=== PATIENT | male | born 1945 | race African-American/Black ===

== ENCOUNTER 2017-06-25 00:42 | Inpatient (IN) ==
[2017-06-26 07:55] LABS: Basophils % 0.2 % (0.0-0.8); Eosinophils # 0.4 10*3/uL (0.0-0.87); Eosinophils % 7.1 % (0.00-10.9); Hematocrit 25.5 VOL% (42.0-52.0); Hemoglobin 8.2 GM/DL (14.0-18.0); Immature Granulocytes % 0.2 %; Immature Granulocytes Absolute 0.01 #; Lymphocytes # 1.7 10*3/uL (1.4-4.0); Lymphocytes % 29.7 % (21.2-54.2); Mean Corpuscular HGB Conc 32.2 GM/DL (32-36); Mean Corpuscular Hemoglobin 27 PG (27-34); Mean Corpuscular Volume 82.3 FL (87-102); Mean Platelet Volume 11.8 FL (9.6-12.0); Monocytes # 0.6 10*3/uL (0.11-0.8); Monocytes % 10.3 % (1.7-12.7); Neutrophils % 52.5 % (38.7-73.9); Platelet Count 262 T/CUMM (130-400); Red Cell Distribution Width 16.7 % (9.3-17.3); White Blood Count 5.8 T/CUMM (4-12)
--- NOTE | 2017-06-26 08:01 | EKG Report ---
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
[2017-06-26] MEDS ORDERED: MAGNESIUM SULF RIDER 4 GM in PREMIX 1 EACH IV PRN (08:27)
[2017-06-26] MEDS ORDERED: LACTULOSE 20 GM/30 ML UDCUP PO PRN (08:27)
[2017-06-26] MEDS ORDERED: ONDANSETRON 4 MG/2 ML VIAL IV PRN (08:27)
[2017-06-26] MEDS ORDERED: MAGNESIUM SULF RIDER 2 GM in PREMIX 1 EACH IV PRN (08:27)
[2017-06-26 08:54] LABS: Calcium 9.1 MG/DL (8.5-10.1); Osmolality,Calculated 281.3 MOS/KG (273-304); Potassium 4.5 MMOL/L (3.5-5.1)
[2017-06-26 09:13] LABS: Alanine Aminotransferase 14 U/L (16-61); Albumin 2.6 G/DL (3.4-5.0); Alkaline Phosphatase 81 U/L (45-117); Aspartate Amino Transferase 10 U/L (0-37); Bilirubin,Total < 0.39 MG/DL (0.2-1.0); Blood Urea Nitrogen 16 MG/DL (7-18); Calcium 8.9 MG/DL (8.5-10.1); Glucose 108 MG/DL (74-106); Potassium 4.5 MMOL/L (3.5-5.1); Sodium 143 MMOL/L (136-145); Total Protein 5.6 G/DL (6.4-8.3)
[2017-06-26] MEDS ORDERED: DEXTROSE 50% 25 GM/50 ML VIAL IV PRN (09:29)
[2017-06-26] MEDS ORDERED: GLUCAGON 1 MG VIAL IM PRN (09:29)
[2017-06-26] MEDS ORDERED: FERROUS SULFATE 325 MG TABLET PO SCH (09:30)
--- NOTE | 2017-06-26 09:30 | Cardiology History & Physical ---
<Herlinda Ann E - Last Filed: 06/26/17 09:45> Assessment and Plan - Time spent with patient Time spent with patient: Greater than 30 minutes (due to assessment, plan, and documentation) (1) Ventricular tachycardia Status: Acute Assessment and plan: See plan of care listed below. Current Visit: Yes (2) Syncope Status: Acute Assessment and plan: See plan of care listed below. Current Visit: Yes (3) Coronary artery disease Status: Chronic Assessment and plan: See plan of care listed below. Current Visit: Yes (4) Hypertension Status: Chronic Assessment and plan: See plan of care listed below. Current Visit: Yes (5) Diabetes mellitus Status: Chronic Assessment and plan: See plan of care listed below. Current Visit: Yes (6) Hyperlipidemia Status: Chronic Assessment and plan: See plan of care listed below. Current Visit: Yes History of Present Illness Chief complaint: syncope History of present illness: Producer Director: Dr. Dumont at [place] PCP: Dr. Guerrero at [place] Mr. Nathan is a 72 year old male with history of coronary artery disease, diabetes mellitus, hypertension, hyperlipidemia. He has a history of PTCA with proximal RCA stent. He also reports having a prior stroke approximately 1 month ago during a previous hospitalization at [place]. He was transferred to our facility yesterday evening from [facility] for further evaluation of syncope. Apparently, Mr. Nathan was admitted to the hospital on 06/18/17 after a syncopal episode. Mr. Nathan was at his home sitting in the chair and was having severe dizziness, lightheadedness, and nausea without vomiting. The next thing the patient remembers is his waking him up and him lying on the floor. He is unsure how long he was unconscious. He was subsequently admitted by Dr. Zane Guerrero for further evaluation. He was noted to have an episode of VT on June 21 or and underwent repeat left heart catheterization with Dr. Dumont. He was found to have moderate to severe obstructive CAD s/p PTCA and stent in the RCA and was subsequently referred to Dr. Craft for further EP evaluation and possible ICD placement due to high risk of sudden cardiac . Mr. Silvestre had been admitted to the hospital several times in the past couple months with symptoms of increasing fatigue, loss of appetite, nausea, and vomiting, dyspnea on exertion, and chest discomfort. Since he was in the hospital in April 2017 and underwent PCI, he denies recurrent angina or increased shortness of breath prior to his syncopal event. He denies any palpitations as well. At [facility], he was noted to have an H&H of 8.6 and 27.7 on 06/25/2017. Was also noted to have a platelet count 346, white blood cell count 6.58, sodium 140, potassium 5.1, chloride 107, carbon dioxide 26, calcium 9.4, creatinine 1.2, BUN 11, glucose 111, GFR 64. He does have a right femoral triple-lumen central line. At our facility, his H&H was noted to be 8.2 and 25.5. BNP is 230. CT head at [place] noted no evidence of acute intracranial pathology. ASSESSMENT/PLAN: 1. VENTRICULAR TACHYCARDIA - Patient has had no further documented dysrhythmias other than the episode at [place]. We will continue beta ignacio while we await EP evaluation. Will further discuss with Dr. Blue and Dr. Craft and await additional recommendations. 2. SYNCOPE - Possibly related to cardiac arrhythmia. Patient was transferred to our facility for further cardiac EP evaluation and possible ICD placement. 3. CORONARY ARTERY DISEASE - S/P PCI possibly 04/19/17?? He underwent left heart catheterization with Dr. Dumont on 06/24/17 which revealed approximately 70% stenosis in the ramus intermedius, 70% stenosis of the distal left circumflex complex, 50% stenosis in the mid segment of the mid LAD, 60% stenosis of the distal segment of the mid LAD, and about 60% stenosis of the mid segment of the right PDA, the stent in the proximal RCA was patent with good flow with mild to moderate disease inside the stent about 40% stenosis. He was noted to have an ejection fraction of 70%. 4. HYPERTENSION - Currently well controlled. Will reintroduce some of his home medications and continue to monitor and adjust accordingly. 5. DIABETES MELLITUS - He has been placed on accuchecks with sliding scale insulin. 6. HYPERLIPIDEMIA - Lipid panel on 06/24/2017 at [facility] revealed cholesterol 153, triglycerides 101, HDL 39, LDL 94. Continue lipid-lowering agent. Home Medications Medication Instructions Recorded Confirmed Type Ondansetron Tab [Zofran Tab] 4 mg PO Q6H #20 tablet 03/27/16 06/26/17 Rx Albuterol Sulfate [Proair HFA] 2 puff INH BID 06/26/17 06/26/17 History Aspirin 81 mg PO DAILY 06/26/17 06/26/17 History Brimonidine Tartrate [Brimonidine 1 drop BOTH EYES BID 06/26/17 06/26/17 History 0.2% Oph Soln] Budesonide/Formoterol 160-4.5 2 puff INH BID 06/26/17 06/26/17 History [Symbicort 160-4.5] Clopidogrel [Plavix] 75 mg PO TID 06/26/17 06/26/17 History Docusate Sodium Cap [Colace Cap] 100 mg PO BID 06/26/17 06/26/17 History Ferrous Sulfate [Ferrous Sulfate 325 mg PO DAILY 06/26/17 06/26/17 History Cap] Latanoprost 0.005% Oph Soln 0.005 % BOTH EYES DAILY 06/26/17 06/26/17 History [Xalatan 0.005% Oph Soln] Latanoprost [Latanoprost 0.005 % 0.005 drop BEDTIME 06/26/17 06/26/17 History Oph Soln] Losartan [Cozaar] 100 mg PO DAILY 06/26/17 06/26/17 History Metoprolol Tartrate 50 mg PO BID 06/26/17 06/26/17 History Polyethylene Glycol 3350 17 gm PO DAILY PRN 06/26/17 06/26/17 History Pregabalin [Lyrica] 75 mg PO BID 06/26/17 06/26/17 History Promethazine Tab [Phenergan Tab] 25 mg PO Q6HR 06/26/17 06/26/17 History Ranitidine Tab [Zantac Tab] 300 mg PO DAILY 06/26/17 06/26/17 History Rosuvastatin [Crestor] 10 mg PO DAILY 06/26/17 06/26/17 History Tramadol HCl [Tramadol Tab] 50 mg PO Q6HR PRN 06/26/17 06/26/17 History amLODIPine [Norvasc] 10 mg PO DAILY 06/26/17 06/26/17 History amLODIPine [Norvasc] 10 mg PO DAILY 06/26/17 06/26/17 History cloNIDine HCl [Clonidine HCl] 0.1 mg PO BID 06/26/17 06/26/17 History hydroCHLOROthiazide 25 mg PO DAILY 06/26/17 06/26/17 History [Hydrochlorothiazide] sitaGLIPtin [Januvia] 50 mg PO DAILY 06/26/17 06/26/17 History Allergies Allergy/AdvReac Type Severity Reaction Status Date / Time No Known Allergies Allergy Unverified 03/27/16 08:35 Review of systems: - Constitutional: Present: fatigue, As per HPI. Absent: anorexia, chills, daytime sleepiness, excessive sweating, fever(s), frequent falls, headache(s), increased appetite, lethargy, night sweats, stops breathing during sleep, weakness, weight gain, weight loss. - EENT Eyes: Present: As per HPI. Absent: blurry vision, diplopia, loss of vision Ears: Present: As per HPI. Absent: decreased hearing, ear discharge, ear pain Nose, mouth and throat: Present: As per HPI. Absent: dysphagia, epistaxis, headache(s), hoarseness, lip swelling, nasal congestion, neck mass, neck pain, sinus pressure, sore throat, throat swelling, tongue swelling, vertigo - Cardiovascular: Present: as per HPI. Absent: chest pain at rest, chest pain with activity, dyspnea, dyspnea on exertion, edema, claudication, diaphoresis, radiating jaw, neck or arm pain, lightheadedness, orthopnea, palpitations, PND - Respiratory: Present: as per HPI. Absent: dyspnea, dyspnea on exertion, cough , hemoptysis, wheezing, snoring, pain on inspiration - Gastrointestinal: Present: nausea, As per HPI. Absent: abdominal pain, bloating, change in bowel habits, constipation, heartburn, hematemesis, hematochezia, loose stools, melena, diarrhea, vomiting - Genitourinary: Present: As per HPI. Absent: difficulty urinating, dysuria, flank pain, hematuria, nocturia, urinary frequency, urinary incontinence - Musculoskeletal: Present: As per HPI. Absent: arthralgias, back pain, joint swelling, limited range of motion, muscle cramps, muscle weakness, myalgias - Neurological: Present: syncope, dizziness,As per HPI. Absent: weakness, abnormal gait, abnormal speech, behavioral changes, confusion, convulsions, disequilibrium, focal frequent falls, headache(s), memory loss, numbness, paresthesias, radicular pain, tremor(s) - Psychiatric: Present: As per HPI. Absent: anxiety, confusion, depression, panic attacks - Endocrine: Present: As per HPI. Absent: cold intolerance, heat intolerance, polydipsia, polyphagia - Hematologic/Lymphatic: Present: As per HPI. Absent: easy bleeding, easy bruising, lymphadenopathy Medical,Surgical,& Family Hx - Medical History Cardio: History of: CAD, Hypertension, Cardiovascular Problems HEENT: History of: Glaucoma Endocrine: History of: Diabetes Mellitus (NIDDM) Respiratory: History of: Asthma, COPD, Respiratory Problems Renal: History of: Renal Failure Gastrointestinal: History of: GERD - Surgical History Cardiac Surgeries: Sugical HX of: Cardiac Catheterization Patient Denies: Cardiac Surgery Thoracic Surgeries: Surgical HX of;: Kidney (Renal Surgery), Lobectomy (LEFT) Reproductive Surgeries: Surgical HX of;: Genitourinary Surgery - Social History Smoking Status: Current every day smoker Frequency of Alcohol Use: None Type of Drug Use: Marijuana Cardiology Physical Exam - Constitutional Vitals: Vital Signs Temp Pulse Resp BP Pulse Ox 97 F L 65 18 122/58 94 L 06/26/17 08:00 06/26/17 08:00 06/26/17 08:00 06/26/17 08:00 06/26/17 08:00 Intake and Output 06/25/17 06/26/17 06/26/17 22:59 06:59 14:59 Output Total 250 / 250 Balance -250 / -250 Output: Urine 250 / 250 Other: Voiding Method Urinal Weight 220 lb Exam: General appearance: Pleasant and cooperative. Overweight, no acute distress. Head exam: Present: normal inspection, normocephalic, atraumatic. Absent: hematoma, laceration Eye exam: Present: EOMI. Absent: conjunctival injection, nystagmus, periorbital swelling, scleral icterus, laceration to eyelids Pupils: Present: PERRL. Absent: constricted, dilated, fixed, irregular, unequal ENT exam: Present: normal exam, normal external ear exam Neck exam: Present: normal inspection. Absent: lymphadenopathy, meningismus, tenderness, thyromegaly, carotid bruit Respiratory exam: Present: clear to auscultation bilaterally. Absent: accessory muscle use, chest wall tenderness, rales, rhonchi, wheezing. Cardiovascular exam: Present: regular rate and rhythm. Absent: gallop, JVD, rubs, murmur GI/Abdominal exam: Present: normal bowel sounds, soft. Absent: distended, firm , guarding, hernia, mass, tenderness, rebound. Extremities exam: Present: normal inspection, normal capillary refill. Upper extremity pulses 2+. Lower extremity pulses 2+. Right femoral triple-lumen central line in place with dressing dry and intact. Absent: calf tenderness, edema Musculoskeletal: Present: No Fluid Collection, No Pain, Normal Range of Motion Back exam: Present: normal inspection. Absent: muscle spasm, vertebral tenderness Neurological exam: Present: alert, oriented X3, grossly intact without resting or essential tremor Psychiatric exam: Present: normal affect, normal mood Skin exam: Present: normal color, warm, dry, intact. Absent: cyanosis, diaphoretic, rash, urticaria Result/EKG - Labs CBC & BMP: 06/26/17 07:39 06/26/17 07:39 Lab Results: I have reviewed the past 24 hour labs Labs: Laboratory Results - last 24 hr 06/26/17 06/26/17 06/26/17 07:39 07:39 07:39 WBC 5.8 RBC 3.10 L Hgb 8.2 L Hct 25.5 L MCV 82.3 L MCH 27 MCHC 32.2 RDW 16.7 Plt Count 262 MPV 11.8 Neut % (Auto) 52.5 Lymph % (Auto) 29.7 [place] % (Auto) 10.3 Eos % (Auto) 7.1 Baso % (Auto) 0.2 Neut # (Auto) 3.0 Lymph # (Auto) 1.7 [place] # (Auto) 0.6 Eos # (Auto) 0.4 Baso # (Auto) 0.0 Immature Gran % 0.2 Nucleated RBC % 0.0 Immature Gran # 0.01 Nucleated RBCs # 0.00 Immature Plt Fraction 0.0 Sodium 141 Potassium 4.5 Chloride 109 H Carbon Dioxide 25 Anion Gap 11.5 BUN 16 Creatinine 1.20 GFR Calculation 90 BUN/Creatinine Ratio 13.00 Glucose 107 H POC Glucose Calculated Osmolality 281.3 Calcium 9.1 B-Natriuretic Peptide 230 H 06/26/17 08:14 WBC RBC Hgb Hct MCV MCH MCHC RDW Plt Count MPV Neut % (Auto) Lymph % (Auto) [place] % (Auto) Eos % (Auto) Baso % (Auto) Neut # (Auto) Lymph # (Auto) [place] # (Auto) Eos # (Auto) Baso # (Auto) Immature Gran % Nucleated RBC % Immature Gran # Nucleated RBCs # Immature Plt Fraction Sodium Potassium Chloride Carbon Dioxide Anion Gap BUN Creatinine GFR Calculation BUN/Creatinine Ratio Glucose POC Glucose 119 H Calculated Osmolality Calcium B-Natriuretic Peptide - EKG EKG results: interpreted by me, sinus rhythm <Etta Blue - Last Filed: 06/26/17 16:28> Assessment and Plan (1) Microcytic hypochromic anemia Status: Chronic Current Visit: Yes (2) Lumbar disc disease Status: Chronic Current Visit: Yes (3) Tobacco use Status: Chronic Current Visit: Yes (4) COPD (chronic obstructive pulmonary disease) Status: Chronic Current Visit: Yes (5) Ventricular tachycardia Status: Acute Current Visit: Yes (6) Syncope Status: Acute Current Visit: Yes (7) Coronary artery disease Status: Chronic Current Visit: Yes (8) Hypertension Status: Chronic Current Visit: Yes (9) Diabetes mellitus Status: Chronic Current Visit: Yes (10) Hyperlipidemia Status: Chronic Current Visit: Yes (11) CVA (cerebral vascular accident) Status: Acute Current Visit: Yes History of Present Illness History of present illness: Mr. Nathan is a 72 year old male with microcytic hypochromic anemia who had symptomatic VT associated with syncope. He is transferred here for further evaluation. He had left heart catheterization what appear to be an intraventricular cavity gradient at [place] when cath by Dr. Dumont. He had no critical epicardial stenosis he had mild in-stent restenosis or lumen loss as described above. Dr. Craft has reviewed the echo. I do not have those films. The patient states that he has been thoroughly worked up for his microcytic hyperchromic anemia including evaluation of his bowel but he continues to have complaints of bloating feeling in his stomach. He denies chest pain but has pain in his legs when he walks that he relates to his disc disease. He denies any recent weight loss. He continues to smoke. He is admitted to the cardiology service for EP consultation with Dr. Craft who and tends on implanting an ICD for secondary prophylaxis tomorrow morning at 930. I discussed with the patient and his . The only question was what time with this take place. They seem to be prepared for the procedure. Review of systems: I agree with the above and got a similar report from the patient. The patient did have syncope. Cardiology Physical Exam - Constitutional Vitals: Vital Signs Temp Pulse Resp BP Pulse Ox 98 F 70 18 147/67 93 L 06/26/17 12:00 06/26/17 12:00 06/26/17 12:00 06/26/17 12:00 06/26/17 12:00 Intake and Output 06/26/17 06/26/17 06/26/17 07:59 15:59 23:59 Intake Total 840 / 840 Output Total 250 / 250 800 / 800 Balance -250 / -250 40 / 40 Intake: Oral 840 / 840 Output: Urine 250 / 250 800 / 800 Other: Voiding Method Urinal Urinal # Bowel Movements 1 Weight 99.79 kg Patient Weight 06/26/17 23:59 Weight 99.79 kg Exam: I do not hear audible murmur. This gradient may have been transient. The patient has pallor. His PMI is within normal limits he does appear to have an S4 gallop. His lungs have coarse breath sounds but are nonfocal I do not hear rales. STD hose are in place. Result/EKG - Labs CBC & BMP: 06/26/17 11:05 06/26/17 07:39 Labs: Laboratory Results - last 24 hr 06/26/17 06/26/17 06/26/17 07:39 07:39 07:39 WBC 5.8 RBC 3.10 L Hgb 8.2 L Hct 25.5 L MCV 82.3 L MCH 27 MCHC 32.2 RDW 16.7 Plt Count 262 MPV 11.8 Neut % (Auto) 52.5 Lymph % (Auto) 29.7 [place] % (Auto) 10.3 Eos % (Auto) 7.1 Baso % (Auto) 0.2 Neut # (Auto) 3.0 Lymph # (Auto) 1.7 [place] # (Auto) 0.6 Eos # (Auto) 0.4 Baso # (Auto) 0.0 Immature Gran % 0.2 Nucleated RBC % 0.0 Immature Gran # 0.01 Nucleated RBCs # 0.00 Immature Plt Fraction 0.0 ESR Westergren Absolute Retic Percent Retic Retic Hgb Equivalent Sodium 141 Potassium 4.5 Chloride 109 H Carbon Dioxide 25 Anion Gap 11.5 BUN 16 Creatinine 1.20 GFR Calculation 90 BUN/Creatinine Ratio 13.00 Glucose 107 H POC Glucose Calculated Osmolality 281.3 Calcium 9.1 Iron TIBC % Saturation Ferritin Total Bilirubin AST ALT Alkaline Phosphatase B-Natriuretic Peptide 230 H Total Protein Albumin Globulin Albumin/Globulin Ratio Blood Type Antibody Screen KIMBERLEY (IgG-AHG) KIMBERLEY, Polyspecific 06/26/17 06/26/17 06/26/17 07:39 08:14 11:04 WBC RBC Hgb Hct MCV MCH MCHC RDW Plt Count MPV Neut % (Auto) Lymph % (Auto) [place] % (Auto) Eos % (Auto) Baso % (Auto) Neut # (Auto) Lymph # (Auto) [place] # (Auto) Eos # (Auto) Baso # (Auto) Immature Gran % Nucleated RBC % Immature Gran # Nucleated RBCs # Immature Plt Fraction ESR Westergren Absolute Retic Percent Retic Retic Hgb Equivalent Sodium 143 Potassium 4.5 Chloride 111 H Carbon Dioxide 25 Anion Gap 11.5 BUN 16 Creatinine 1.20 GFR Calculation 90 BUN/Creatinine Ratio 13.00 Glucose 108 H POC Glucose 119 H Calculated Osmolality 286.0 Calcium 8.9 Iron TIBC % Saturation Ferritin 25.2 L Total Bilirubin < 0.39 AST 10 ALT 14 L Alkaline Phosphatase 81 B-Natriuretic Peptide Total Protein 5.6 L Albumin 2.6 L Globulin 3.0 Albumin/Globulin Ratio 0.8 L Blood Type Antibody Screen KIMBERLEY (IgG-AHG) KIMBERLEY, Polyspecific 06/26/17 06/26/17 06/26/17 11:04 11:04 11:05 WBC 5.5 RBC 3.00 L Hgb 7.8 L Hct 24.7 L MCV 82.3 L MCH 26 L MCHC 31.6 L RDW 16.8 Plt Count 305 MPV 12.3 H Neut % (Auto) 54.1 Lymph % (Auto) 28.0 [place] % (Auto) 10.0 Eos % (Auto) 7.5 Baso % (Auto) 0.2 Neut # (Auto) 3.0 Lymph # (Auto) 1.5 [place] # (Auto) 0.6 Eos # (Auto) 0.4 Baso # (Auto) 0.0 Immature Gran % 0.2 Nucleated RBC % 0.0 Immature Gran # 0.01 Nucleated RBCs # 0.00 Immature Plt Fraction 0.0 ESR Westergren 96 H Absolute Retic 0.1 Percent Retic 2.6 H Retic Hgb Equivalent 26.2 L Sodium Potassium Chloride Carbon Dioxide Anion Gap BUN Creatinine GFR Calculation BUN/Creatinine Ratio Glucose POC Glucose Calculated Osmolality Calcium Iron TIBC % Saturation Ferritin Total Bilirubin AST ALT Alkaline Phosphatase B-Natriuretic Peptide Total Protein Albumin Globulin Albumin/Globulin Ratio Blood Type B POSITIVE Antibody Screen Negative KIMBERLEY (IgG-AHG) Negative KIMBERLEY, Polyspecific Negative 06/26/17 06/26/17 06/26/17 11:05 11:05 11:51 WBC RBC Hgb Hct MCV MCH MCHC RDW Plt Count MPV Neut % (Auto) Lymph % (Auto) [place] % (Auto) Eos % (Auto) Baso % (Auto) Neut # (Auto) Lymph # (Auto) [place] # (Auto) Eos # (Auto) Baso # (Auto) Immature Gran % Nucleated RBC % Immature Gran # Nucleated RBCs # Immature Plt Fraction ESR Westergren Absolute Retic 0.1 Percent Retic 2.4 H Retic Hgb Equivalent 25.5 L Sodium Potassium Chloride Carbon Dioxide Anion Gap BUN Creatinine GFR Calculation BUN/Creatinine Ratio Glucose POC Glucose 132 H Calculated Osmolality Calcium Iron 25 L TIBC 191 L % Saturation 13.1 L Ferritin 24.6 L Total Bilirubin AST ALT Alkaline Phosphatase B-Natriuretic Peptide Total Protein Albumin Globulin Albumin/Globulin Ratio Blood Type Antibody Screen KIMBERLEY (IgG-AHG) KIMBERLEY, Polyspecific
[2017-06-26] MEDS ORDERED: POLYETHYLENE GLYCOL POWDER 17 GM PACK PO PRN (10:06)
--- NOTE | 2017-06-26 10:48 | Electrophysiology Consultation ---
History of Present Illness - Data of Consult Patient: new to practice Consult date: 06/26/17 Requesting Physician: Etta Blue - Consult Narrative Reason for consult: VT History of present illness: Mr. Nathan is a 72 year old BM, followed by Dr. Dumont. He was transferred for EP evaluation, due to syncope, VT History of CAD, preserved ejection fraction, status post PCI's. He was recently admitted to [facility] after an episode of syncope, which was thought to be secondary due to heat exhaustion. LHC confirmed moderate, diffuse CAD, no options for further revascularization. The LV function was hyperdynamic. No documented LVOT gradient. Neurological consult found cerebrovascular small vessel disease, suspected seizure, for which Keppra was used. On the day of discharge, he had an episode of wide QRS, regular tachycardia, captured on the monitor. Initially, this was with one-to-one VA conduction, before the arrhythmia terminated, few seconds of 2-1 AV block was noted. This is consistent with ventricular tachycardia. No significant conversion pauses. His EKG sinus rhythm, normal OR interval, borderline IVCD, with nonspecific report changes, normal QTC. Type 2 diabetes mellitus, brittle, his vision is very poor. Hypertension, hyperlipidemia. He is still having some left upper extremity weakness from his recent CVA. He does not recall palpitations or history of atrial fibrillation. He is on aspirin and Plavix for his diffuse, severe CAD, PCI. He is anemic, hematocrit is 25, with microcytosis. He has occasional black stools, does not recall prior GI evaluation history of ulcers or polyps. His hematocrit was trending at 26-27 range at [facility] recently. He has history of syncope, for the past several years, which was also attributed to seizures. He has some tongue biting in the past. On recent episode, he was sitting, and passed out without prodromal symptoms, no injuries seizures incontinence or tongue biting. History of COPD, stable at this time. Glaucoma, with very poor vision. Mild CKD. History of chronic low back pain, status post implanted stimulator. CC: Gurjit Craft MD - Home Medications and Allergies Home Medications: Home Medications Medication Instructions Recorded Confirmed Type Ondansetron Tab [Zofran Tab] 4 mg PO Q6H #20 tablet 03/27/16 06/26/17 Rx Albuterol Sulfate [Proair HFA] 2 puff INH BID 06/26/17 06/26/17 History Aspirin 81 mg PO DAILY 06/26/17 06/26/17 History Brimonidine Tartrate [Brimonidine 1 drop BOTH EYES BID 06/26/17 06/26/17 History 0.2% Oph Soln] Budesonide/Formoterol 160-4.5 2 puff INH BID 06/26/17 06/26/17 History [Symbicort 160-4.5] Clopidogrel [Plavix] 75 mg PO TID 06/26/17 06/26/17 History Docusate Sodium Cap [Colace Cap] 100 mg PO BID 06/26/17 06/26/17 History Ferrous Sulfate [Ferrous Sulfate 325 mg PO DAILY 06/26/17 06/26/17 History Cap] Latanoprost 0.005% Oph Soln 0.005 % BOTH EYES DAILY 06/26/17 06/26/17 History [Xalatan 0.005% Oph Soln] Latanoprost [Latanoprost 0.005 % 0.005 drop BEDTIME 06/26/17 06/26/17 History Oph Soln] Losartan [Cozaar] 100 mg PO DAILY 06/26/17 06/26/17 History Metoprolol Tartrate 50 mg PO BID 06/26/17 06/26/17 History Polyethylene Glycol 3350 17 gm PO DAILY PRN 06/26/17 06/26/17 History Pregabalin [Lyrica] 75 mg PO BID 06/26/17 06/26/17 History Promethazine Tab [Phenergan Tab] 25 mg PO Q6HR 06/26/17 06/26/17 History Ranitidine Tab [Zantac Tab] 300 mg PO DAILY 06/26/17 06/26/17 History Rosuvastatin [Crestor] 10 mg PO DAILY 06/26/17 06/26/17 History Tramadol HCl [Tramadol Tab] 50 mg PO Q6HR PRN 06/26/17 06/26/17 History amLODIPine [Norvasc] 10 mg PO DAILY 06/26/17 06/26/17 History amLODIPine [Norvasc] 10 mg PO DAILY 06/26/17 06/26/17 History cloNIDine HCl [Clonidine HCl] 0.1 mg PO BID 08/23/17 08/23/17 History hydroCHLOROthiazide 25 mg PO DAILY 06/26/17 06/26/17 History [Hydrochlorothiazide] sitaGLIPtin [Januvia] 50 mg PO DAILY 06/26/17 06/26/17 History Allergies/Adverse Reactions: Allergies Allergy/AdvReac Type Severity Reaction Status Date / Time No Known Allergies Allergy Unverified 03/27/16 08:35 Medical,Surgical,& Family Hx - Medical History Cardio: History of: CAD, Hypertension, Cardiovascular Problems HEENT: History of: Glaucoma Endocrine: History of: Diabetes Mellitus (NIDDM) Respiratory: History of: Asthma, COPD, Respiratory Problems Renal: History of: Renal Failure Gastrointestinal: History of: GERD - Surgical History Cardiac Surgeries: Sugical HX of: Cardiac Catheterization Patient Denies: Cardiac Surgery Thoracic Surgeries: Surgical HX of;: Kidney (Renal Surgery), Lobectomy (LEFT) Reproductive Surgeries: Surgical HX of;: Genitourinary Surgery - Social History Smoking Status: Current every day smoker Frequency of Alcohol Use: None Type of Drug Use: Marijuana 12 point system: reviewed and no additional remarkable complaints except as stated Exam - Constitutional Vitals: Period Temp Pulse Resp BP Sys/Barajas Pulse Ox Last 24 Hr 97 F-97.0 F 65-68 17-18 122-145/58-70 89-94 General appearance: normal weight, over weight - Head Head exam: Present: normal inspection, normocephalic. Absent: contusion - Eye Eye exam: Absent: scleral icterus Pupils: Absent: dilated - ENT ENT exam: Present: normal external ear exam - Neck Neck exam: Present: normal inspection - Respiratory Respiratory exam: Present: decreased breath sounds. Absent: chest wall tenderness - Cardiovascular Cardiovascular exam: Present: regular rate and rhythm, systolic murmur. Absent : JVD - GI/Abdominal GI/Abdominal exam: Present: normal bowel sounds. Absent: distended - Extremities Exam Extremities exam: Present: normal inspection, normal capillary refill. Absent: edema - Neurological Exam Neurological exam: Present: alert, oriented X3 - Psychiatric Psychiatric exam: Present: normal affect, normal mood - Skin Skin exam: Present: normal color, warm. Absent: cyanosis Results - Labs CBC & BMP: 06/26/17 07:39 06/26/17 07:39 Lab Results: I have reviewed the past 24 hour labs Assessment and Plan (1) CVA (cerebral vascular accident) Status: Acute Assessment and plan: 72-year-old black male, recurrent syncope, CAD, preserved ejection fraction, ventricular tachycardia. Type 2 diabetes mellitus, glaucoma, back pain with implanted stimulator, suspected seizure disorder, recent CVA. -We discussed risks and benefits of management options. We will proceed with a dual-chamber ICD implant for secondary prevention of sudden cardiac , documented ventricular tachycardia, syncope, in context of structural heart disease. I am going with a dual-chamber device to monitor for silent A. fib, had prior CVA. No SPRAY PILOT indication. -He is currently on dual antiplatelet for his diffuse, severe CAD, recent PCI. -Anemia. Check occult stool blood, anemia studies. GI consult, has occasional black stools. -N.p.o. after midnight. We will plan to pursue the ICD implant under MAC tomorrow. Plan for a non-MRI compatible device, as his implanted back stimulator already contraindicates MRIs. Current Visit: Yes (2) Ventricular tachycardia Status: Acute Current Visit: Yes (3) Syncope Status: Acute Current Visit: Yes (4) Coronary artery disease Status: Chronic Current Visit: Yes (5) Hypertension Status: Chronic Current Visit: Yes (6) Diabetes mellitus Status: Chronic Current Visit: Yes (7) Hyperlipidemia Status: Chronic Current Visit: Yes
[2017-06-26] MEDS ORDERED: ceFAZolin 1,000 MG VIAL IRRIG ONE (10:54)
[2017-06-26] MEDS: amLODIPine 10 MG TABLET PO SCH (11:24)
[2017-06-26] MEDS: FAMOTIDINE 20 MG TABLET PO SCH (11:24)
[2017-06-26] MEDS: PANTOPRAZOLE 40 MG TABLET PO SCH (11:24)
[2017-06-26] MEDS: PROMETHAZINE 25 MG TABLET PO SCH ×2 (11:24→18:22)
[2017-06-26] MEDS: ACETAMINOPHEN 325 MG TABLET PO PRN (11:24)
[2017-06-26] MEDS: hydroCHLOROthiazide 25 MG TABLET PO SCH (11:24)
[2017-06-26] MEDS: CLOPIDOGREL 75 MG TABLET PO SCH (11:25)
[2017-06-26] MEDS: ALBUTEROL 2.5 MG/3 ML NEB RESP TX SCH ×2 (11:32→18:56)
[2017-06-26 11:46] LABS: Basophils % 0.2 % (0.0-0.8); Eosinophils # 0.4 10*3/uL (0.0-0.87); Eosinophils % 7.5 % (0.00-10.9); Hematocrit 24.7 VOL% (42.0-52.0); Hemoglobin 7.8 GM/DL (14.0-18.0); Immature Granulocytes % 0.2 %; Immature Granulocytes Absolute 0.01 #; Lymphocytes # 1.5 10*3/uL (1.4-4.0); Mean Corpuscular HGB Conc 31.6 GM/DL (32-36); Mean Corpuscular Hemoglobin 26 PG (27-34); Mean Corpuscular Volume 82.3 FL (87-102); Mean Platelet Volume 12.3 FL (9.6-12.0); Monocytes # 0.6 10*3/uL (0.11-0.8); Neutrophils % 54.1 % (38.7-73.9); Platelet Count 305 T/CUMM (130-400); Red Cell Distribution Width 16.8 % (9.3-17.3); White Blood Count 5.5 T/CUMM (4-12)
[2017-06-26 12:26] LABS: % Iron Saturation 13.1 % (18-50); Ferritin 24.6 ng/ml (26-388)
[2017-06-26] MEDS: INSULIN LISPRO 100 UNIT/ML SUBCUT SCH ×3 (12:36→21:17)
[2017-06-26 12:52] LABS: Sedimentation Rate-Westergren 96 MM/HR (0-20)
[2017-06-26] MEDS: traMADol 50 MG TABLET PO PRN ×2 (13:55→22:08)
--- NOTE | 2017-06-26 15:06 | XRay Report ---
XR chest 2V Indication: Preop ICD placement. Chest 2 views: Comparison 03/27/2016. Epidural stimulator again shown midthoracic spine. Heart size remains normal. Mediastinal contours unremarkable. Chronic scarring left lung base is stable. No infiltrates. Healed posterior left rib fractures stable. Impression: No acute cardiopulmonary disease. Chronic changes as described. PROCEDURE INTERPRETED AT [facility] DEPARTMENT OF RADIOLOGY Final Report Signed by: Zane Portillo M.D.
--- NOTE | 2017-06-26 16:57 | XRay Report ---
XR abdomen 2V Indication: Abdominal pain. Abdomen 3 views: Epidural stimulators are present, there is a right groin catheter, left iliac stent, and metallic density in left pelvis, possibly retained barium in a diverticulum. No small bowel dilatation shown. Normal amount of stool and gas is present in the colon. No free air. Impression: Unremarkable bowel gas pattern. PROCEDURE INTERPRETED AT [facility] DEPARTMENT OF RADIOLOGY Final Report Signed by: Zane Portillo M.D.
[2017-06-26 18:22] LABS: Hematocrit 25.7 VOL% (42.0-52.0); Hemoglobin 8.3 GM/DL (14.0-18.0)
[2017-06-26] MEDS: METOPROLOL TARTRATE 50 MG TABLET PO SCH (21:52)
[2017-06-26] MEDS: FERROUS SULFATE 325 MG TABLET PO SCH (21:52)
[2017-06-26] MEDS: cloNIDine 0.1 MG TABLET PO SCH (21:52)
[2017-06-26] MEDS: BRIMONIDINE 0.2% OPH SOLN 5 ML BOTTLE BOTH EYES SCH (21:52)
[2017-06-26] MEDS: ZALEPLON 5 MG CAPSULE PO PRN (22:08)
[2017-06-27] MEDS: ACETAMINOPHEN 325 MG TABLET PO PRN (01:01)
[2017-06-27 01:26] LABS: Basophils % 0.2 % (0.0-0.8); Eosinophils # 0.4 10*3/uL (0.0-0.87); Eosinophils % 6.3 % (0.00-10.9); Hematocrit 22.3 VOL% (42.0-52.0); Hemoglobin 7.2 GM/DL (14.0-18.0); Immature Granulocytes % 0.3 %; Immature Granulocytes Absolute 0.02 #; Lymphocytes # 1.5 10*3/uL (1.4-4.0); Lymphocytes % 25.6 % (21.2-54.2); Mean Corpuscular HGB Conc 32.3 GM/DL (32-36); Mean Corpuscular Hemoglobin 26 PG (27-34); Mean Corpuscular Volume 81.4 FL (87-102); Mean Platelet Volume 12.2 FL (9.6-12.0); Monocytes # 0.7 10*3/uL (0.11-0.8); Monocytes % 10.8 % (1.7-12.7); Neutrophils # 3.4 10*3/uL (1.4-7.4); Neutrophils % 56.8 % (38.7-73.9); Platelet Count 285 T/CUMM (130-400); Red Blood Count 2.74 MC/CUMM (3.8-5.5); Red Cell Distribution Width 16.7 % (9.3-17.3)
[2017-06-27 01:53] LABS: Calcium 8.9 MG/DL (8.5-10.1); Magnesium 1.6 MG/DL (1.8-2.4); Potassium 4.4 MMOL/L (3.5-5.1)
[2017-06-27] MEDS ORDERED: ceFAZolin 1,000 MG VIAL IRRIG ONE (06:00)
[2017-06-27] MEDS: ALBUTEROL 2.5 MG/3 ML NEB RESP TX SCH ×2 (06:50→18:55)
[2017-06-27] MEDS ORDERED: SODIUM CHLORIDE 0.9% 250 ML IV PRN (07:17)
[2017-06-27] MEDS: PROMETHAZINE 25 MG TABLET PO SCH ×4 (07:18→17:00)
--- NOTE | 2017-06-27 08:08 | EKG Report ---
Stationary ECG Study [facility] Test Date: 06/27/2017 8:06:55 AM Pat Name: SARAH PETERSON Department: Room: 291 Gender: M Admissions Manager: CAMERON : 1945 Requested by: Gurjit Craft Order Number: [id number] Reading MD: BARBARA CUEVAS Intervals [place] Rate: 63 P: 57 OK: 179 QRS: 12 QRSD: 86 T: 127 QT: 403 QTc: 410 Interpretive Statements SINUS RHYTHM MODERATE T-WAVE ABNORMALITY, CONSIDER LATERAL ISCHEMIA Electronically Signed On 06-28-17 07:02:53 CDT by BARBARA CUEVAS [email or web address]
--- NOTE | 2017-06-27 08:21 | Electrophysiology Progress Not ---
Assessment and Plan (1) CVA (cerebral vascular accident) Status: Acute Assessment and plan: 72-year-old black male, recurrent syncope, CAD, preserved ejection fraction, ventricular tachycardia. Type 2 diabetes mellitus, glaucoma, back pain with implanted stimulator, suspected seizure disorder, recent CVA. -Severe iron deficiency anemia, markedly elevated ESR. Suspicious for slow, ongoing loss. GI evaluation pending. He is already on PPI plus H2 ignacio. -He is currently on dual antiplatelet for his diffuse, severe CAD, recent PCI. -Continue iron, multivitamin. May need IV supplement, iron level markedly low -He is going to get transfusion today. -I am going to hold off ICD implant, until etiology of his severe anemia is established. He will need protection with a LifeVest in the meantime, if he gets discharged for outpatient workup, had VT/syncope -He is n.p.o. today for the planned defibrillator implant. I asked him not to eat, until GI comes by, if endoscopy can be pursued today Current Visit: Yes (2) Ventricular tachycardia Status: Acute Current Visit: Yes (3) Syncope Status: Acute Current Visit: Yes (4) Coronary artery disease Status: Chronic Current Visit: Yes (5) Hypertension Status: Chronic Current Visit: Yes (6) Diabetes mellitus Status: Chronic Current Visit: Yes (7) Hyperlipidemia Status: Chronic Current Visit: Yes Electrophysiology Subjective Interval history: Hematocrit trended down, 22. Frequent PVCs, no recurrence of sustained ventricular tachycardia. No chest pain. Exam - Constitutional Vitals: Period Temp Pulse Resp BP Sys/Barajas Pulse Ox Last 24 Hr 98 F-99.4 F 66-74 16-18 119-147/57-67 93-100 General appearance: normal weight, no acute distress - Head Head exam: Present: normal inspection, normocephalic - Eye Eye exam: Absent: conjunctival injection, scleral icterus Pupils: Absent: dilated - ENT ENT exam: Present: normal external ear exam - Neck Neck exam: Present: normal inspection - Respiratory Respiratory exam: Present: clear to auscultation bilaterally, prolonged expiratory phase - Cardiovascular Cardiovascular exam: Present: regular rate and rhythm, systolic murmur. Absent : JVD - GI/Abdominal GI/Abdominal exam: Present: normal bowel sounds. Absent: distended - Extremities Exam Extremities exam: Present: normal inspection, normal capillary refill. Absent: edema - Back Exam Back exam: Present: normal inspection - Neurological Exam Neurological exam: Present: alert, oriented X3 - Psychiatric Psychiatric exam: Present: normal affect, normal mood - Skin Skin exam: Present: normal color, warm. Absent: cyanosis Results - Labs CBC & BMP: 06/27/17 01:13 06/27/17 01:14 Lab Results: I have reviewed the past 24 hour labs
[2017-06-27] MEDS: INSULIN LISPRO 100 UNIT/ML SUBCUT SCH ×4 (08:32→21:50)
[2017-06-27 09:07] LABS: Hemoglobin A1 (Alkaline) 97.5 % (96.5-98.5); Hemoglobin A2 (Alkaline) 2.5 % (1.5-3.5)
--- NOTE | 2017-06-27 09:10 | Gastrointestinal Consult Note ---
<Syl Wilks - Last Filed: 06/27/17 09:08> Assessment and Plan (1) Anemia Status: Acute Assessment and plan: 06/27-Hx of anemia with blood transfusions in past with findings of HH 05/25 w/o overt bleeding. Reports of melena, on iron therapy as well as Plavix. Will obtain endoscopy records from [place]. Plan for diagnostic EGD today to further evaluate. Plan and addendum to follow by Dr Brown. Current Visit: Yes History of Present Illness Chief complaint: Anemia, melena History of present illness: Mr. Nathan is a 72 year old male who was admitted to the hospital on yesterday with syncopal episode. Pt is a fair historian as well as who is at bedside. Information was obtained from patient interview as well as chart review. Pt has a history of CAD, DM, HTN and hyperlipidemia. Pt was admitted initially to [place] on 06/18 for syncopal episodes and was transferred to our facility on yesterday for further evaluation by Dr Craft regarding this. He reportedly had onset of dizziness, nausea and vomiting at home prior to admission and was taken to the ER by family. He underwent heart catherization on 06/21 and was found to have severe obstructive CAD with patent RCA stent with no new stents placed (original placed several years ago). He was transferred to our facility for possible ICD placement after episode of VT at [place]. He was found to be anemic on admission. He states that he has a history of anemia in the past and has required blood transfusions on 2-3 occasions. He has had endoscopy done as well at [place] in the past year according to patients however they cannot recall the findings of this. Pt states he has not seen any overt bleeding however his states his stools are darker than usual in which he takes iron supplements daily however she notes a change. He states he has been losing weight but cannot recall how much. He denies any upper GI symptoms including nausea, vomiting, dyspepsia, belching, bloating or dysphagia. Denies taking any NSAIDs. He does take Plavix and aspirin therapy which is currently not on hold. His iron studies are noted with iron 25, TIBC 191, saturation 13.1, and ferritin 24.6. HH is 05/25 and he is to be transfused 2 units PRBC. Home Medications Medication Instructions Recorded Confirmed Type Ondansetron Tab [Lorna Tab] 4 mg PO Q6H #20 tablet 03/27/16 06/26/17 Rx Albuterol Sulfate [Proair HFA] 2 puff INH BID 06/26/17 06/26/17 History Aspirin 81 mg PO DAILY 06/26/17 06/26/17 History Brimonidine Tartrate [Brimonidine 1 drop BOTH EYES BID 06/26/17 06/26/17 History 0.2% Oph Soln] Budesonide/Formoterol 160-4.5 2 puff INH BID 06/26/17 06/26/17 History [Symbicort 160-4.5] Clopidogrel [Plavix] 75 mg PO TID 06/26/17 06/26/17 History Docusate Sodium Cap [Colace Cap] 100 mg PO BID 06/26/17 06/26/17 History Ferrous Sulfate [Ferrous Sulfate 325 mg PO DAILY 06/26/17 06/26/17 History Cap] Latanoprost 0.005% Oph Soln 0.005 % BOTH EYES DAILY 06/26/17 06/26/17 History [Xalatan 0.005% Oph Soln] Latanoprost [Latanoprost 0.005 % 0.005 drop BEDTIME 06/26/17 06/26/17 History Oph Soln] Losartan [Cozaar] 100 mg PO DAILY 06/26/17 06/26/17 History Metoprolol Tartrate 50 mg PO BID 06/26/17 06/26/17 History Polyethylene Glycol 3350 17 gm PO DAILY PRN 06/26/17 06/26/17 History Pregabalin [Lyrica] 75 mg PO BID 06/26/17 06/26/17 History Promethazine Tab [Phenergan Tab] 25 mg PO Q6HR 06/26/17 06/26/17 History Ranitidine Tab [Zantac Tab] 300 mg PO DAILY 06/26/17 06/26/17 History Rosuvastatin [Crestor] 10 mg PO DAILY 06/26/17 06/26/17 History Tramadol HCl [Tramadol Tab] 50 mg PO Q6HR PRN 06/26/17 06/26/17 History amLODIPine [Norvasc] 10 mg PO DAILY 06/26/17 06/26/17 History amLODIPine [Norvasc] 10 mg PO DAILY 06/26/17 06/26/17 History cloNIDine HCl [Clonidine HCl] 0.1 mg PO BID 06/26/17 06/26/17 History hydroCHLOROthiazide 25 mg PO DAILY 06/26/17 06/26/17 History [Hydrochlorothiazide] sitaGLIPtin [Januvia] 50 mg PO DAILY 06/26/17 06/26/17 History Allergies Allergy/AdvReac Type Severity Reaction Status Date / Time No Known Allergies Allergy Unverified 03/27/16 08:35 Medical,Surgical,& Family Hx - Medical History Cardio: History of: CAD, Hypertension, Cardiovascular Problems HEENT: History of: Glaucoma Endocrine: History of: Diabetes Mellitus (NIDDM) Respiratory: History of: Asthma, COPD, Respiratory Problems Renal: History of: Renal Failure Gastrointestinal: History of: GERD - Surgical History Cardiac Surgeries: Sugical HX of: Cardiac Catheterization Patient Denies: Cardiac Surgery Thoracic Surgeries: Surgical HX of;: Kidney (Renal Surgery), Lobectomy (LEFT) Reproductive Surgeries: Surgical HX of;: Genitourinary Surgery - Social History Smoking Status: Current every day smoker Frequency of Alcohol Use: None Type of Drug Use: Marijuana 12 point system: reviewed and no additional remarkable complaints except as stated - Constitutional Constitutional: Present: as per HPI, fatigue, weakness - EENT Eyes: Present: as per HPI Ears: Present: as per HPI Nose, mouth and throat: Present: as per HPI - Cardiovascular Cardiovascular: Present: as per HPI - Respiratory Respiratory: Present: as per HPI - Gastrointestinal Gastrointestinal: Present: as per HPI - Genitourinary Genitourinary: Present: as per HPI - Musculoskeletal Musculoskeletal: Present: as per HPI - Neurological Neurological: Present: as per HPI - Psychiatric Psychiatric: Present: as per HPI - Endocrine Endocrine: Present: as per HPI - Hematologic/Lymphatic Hematologic/Lymphatic: Present: as per HPI Exam - Constitutional Vitals: Period Temp Pulse Resp BP Sys/Barajas Pulse Ox Last 24 Hr 98 F-99.4 F 65-74 16-18 119-147/57-67 93-100 General appearance: normal weight, no acute distress - Head Head exam: Present: normal inspection, normocephalic - Eye Eye exam: Present: other (lids and conjunctiva unremarkable). Absent: scleral icterus - ENT ENT exam: Present: normal exam, normal oropharynx - Neck Neck exam: Present: normal inspection - Respiratory Respiratory exam: Present: clear to auscultation bilaterally. Absent: rales, rhonchi, wheezes - Cardiovascular Cardiovascular exam: Present: regular rate and rhythm. Absent: diastolic murmur , JVD, systolic murmur - GI/Abdominal GI/Abdominal exam: Present: normal bowel sounds, soft. Absent: ascites, distended, mass, organomegaly, tenderness - Extremities Exam Extremities exam: Present: normal inspection, full ROM - Back Exam Back exam: Present: normal inspection - Neurological Exam Neurological exam: Present: alert, oriented X3 - Psychiatric Psychiatric exam: Present: normal affect, normal mood - Skin Skin exam: Present: normal color, warm, dry Results - Labs CBC & BMP: 06/27/17 01:13 06/27/17 01:14 Lab Results: I have reviewed the past 24 hour labs <Willem Brown - Last Filed: 06/27/17 11:32> History of Present Illness History of present illness: Mr. Nathan is a 72 year old male Exam - Constitutional Vitals: Period Temp Pulse Resp BP Sys/Barajas Pulse Ox Last 24 Hr 96.4 F-99.4 F 59-74 14-18 119-147/57-71 93-100 Results - Labs CBC & BMP: 06/27/17 09:20 06/27/17 01:14
[2017-06-27 09:51] LABS: Hematocrit 22.9 VOL% (42.0-52.0); Hemoglobin 7.4 GM/DL (14.0-18.0)
[2017-06-27] MEDS: MULTIVITAMIN (BEROCCA) TABLET PO SCH ×2 (10:11→13:16)
[2017-06-27] MEDS: ROSUVASTATIN 10 MG TABLET PO SCH ×2 (10:11→13:17)
[2017-06-27] MEDS: ASPIRIN CHEW 81 MG TABLET PO SCH ×2 (10:11→13:20)
[2017-06-27] MEDS: cloNIDine 0.1 MG TABLET PO SCH ×3 (10:11→21:50)
[2017-06-27] MEDS: FERROUS SULFATE 325 MG TABLET PO SCH ×4 (10:12→21:50)
[2017-06-27] MEDS: MAGNESIUM OXIDE 400 MG TABLET PO SCH ×3 (10:12→21:49)
[2017-06-27] MEDS: hydroCHLOROthiazide 25 MG TABLET PO SCH ×2 (10:12→13:17)
[2017-06-27] MEDS: METOPROLOL TARTRATE 50 MG TABLET PO SCH ×3 (10:12→21:49)
[2017-06-27] MEDS: PANTOPRAZOLE 40 MG TABLET PO SCH ×2 (10:13→13:20)
[2017-06-27] MEDS: FAMOTIDINE 20 MG TABLET PO SCH ×2 (10:13→13:19)
[2017-06-27] MEDS: CLOPIDOGREL 75 MG TABLET PO SCH ×2 (10:13→13:20)
[2017-06-27] MEDS: amLODIPine 10 MG TABLET PO SCH ×2 (10:13→13:17)
--- NOTE | 2017-06-27 11:45 | Operative Note ---
Date of procedure: 06/27/17 Pre-op diagnosis: Severe anemia with melena on anticoagulation Procedure: EGD 72-year-old gentleman with severe anemia on anticoagulation with question melena now for EGD to further evaluate. Informed symptoms obtained the patient He was sedated with MAC anesthesia per anesthesia protocol. Patient placed in left lateral decubitus position the Olympus flexible video upper endoscope was inserted into the oral cavity under direct vision the esophagus was intubated. Findings: Esophagus-normal proximal mid esophageal mucosa distal esophagus with small hiatal hernia. No varices esophagitis Galvan's were identified. Stomach-normal insufflation normal mucosa to direct retroflexed views of the body, fundus, cardia and antrum station. No blood present. Pylorus-normal Duodenum-normal from the bulb of the duodenum to the third portion of the duodenum. Scattered AVMs were seen with no active bleeding. The procedure terminated placed our procedure well his discharge recovery in good condition. Postop diagnosis: 1. Angiodysplasia of the small bowel-likely source of ongoing GI bleed in face of anticoagulation. If active bleeding develops consider bleeding scan for attempted embolization. 2. Consider colonoscopy ,if not recently done at [place], once his Plavix has been held for 5 days per cardiology's approval. Anesthesia: MAC Surgeon / Physician: Willem Brown Estimated blood loss: none Specimens: none sent Condition: stable Disposition: post procedure unit Results - Labs CBC & BMP: 06/27/17 09:20 06/27/17 01:14 Discharge Plan - Discharge Medications No Action Ondansetron Tab [Zofran Tab] 4 mg PO Q6H #20 tablet Tramadol HCl [Tramadol Tab] 50 mg PO Q6HR PRN PRN Reason: Pain sitaGLIPtin [Januvia] 50 mg PO DAILY Ranitidine Tab [Zantac Tab] 300 mg PO DAILY Promethazine Tab [Phenergan Tab] 25 mg PO Q6HR Pregabalin [Lyrica] 75 mg PO BID Metoprolol Tartrate 50 mg PO BID Losartan [Cozaar] 100 mg PO DAILY Latanoprost [Latanoprost 0.005 % Oph Soln] 0.005 drop BEDTIME hydroCHLOROthiazide [Hydrochlorothiazide] 25 mg PO DAILY Ferrous Sulfate [Ferrous Sulfate Cap] 325 mg PO DAILY Docusate Sodium Cap [Colace Cap] 100 mg PO BID Clopidogrel [Plavix] 75 mg PO TID Budesonide/Formoterol 160-4.5 [Symbicort 160-4.5] 2 puff INH BID Brimonidine Tartrate [Brimonidine 0.2% Oph Soln] 1 drop BOTH EYES BID Aspirin 81 mg PO DAILY amLODIPine [Norvasc] 10 mg PO DAILY Latanoprost 0.005% Oph Soln [Xalatan 0.005% Oph Soln] 0.005 % BOTH EYES DAILY amLODIPine [Norvasc] 10 mg PO DAILY Rosuvastatin [Crestor] 10 mg PO DAILY Polyethylene Glycol 3350 17 gm PO DAILY PRN PRN Reason: Constipation cloNIDine HCl [Clonidine HCl] 0.1 mg PO BID Albuterol Sulfate [Proair HFA] 2 puff INH BID - Follow Up or Referral - Forms/Instructions
--- NOTE | 2017-06-27 11:51 | Anesthesia Post-Op ---
Anesthesia Post OP - Post Ansesthetic Evaluation Patient seen in post op: Yes Resp: within normal limits CV: within normal limits Mental: within normal limits Temp: within normal limits [id number]: within normal limits Nausea and Vomiting: within normal limits Pain: within normal limits
[2017-06-27] MEDS: BRIMONIDINE 0.2% OPH SOLN 5 ML BOTTLE BOTH EYES SCH ×2 (12:30→21:48)
[2017-06-27] MEDS: NICOTINE 14 MG/24 HR PATCH TRANSDERM SCH (13:15)
[2017-06-27] MEDS: traMADol 50 MG TABLET PO PRN ×2 (13:20→21:48)
--- NOTE | 2017-06-27 14:18 | Cardiology Progress Note ---
Assessment and Plan (1) Ventricular tachycardia Status: Acute Assessment and plan: See plan of care listed below. Current Visit: Yes (2) Syncope Status: Acute Assessment and plan: See plan of care listed below. Current Visit: Yes (3) Coronary artery disease Status: Chronic Assessment and plan: See plan of care listed below. Current Visit: Yes (4) Hypertension Status: Chronic Assessment and plan: See plan of care listed below. Current Visit: Yes (5) Diabetes mellitus Status: Chronic Assessment and plan: See plan of care listed below. Current Visit: Yes (6) Hyperlipidemia Status: Chronic Assessment and plan: See plan of care listed below. Current Visit: Yes Exam (Progress Note) - Constitutional Vitals: Period Temp Pulse Resp BP Sys/Barajas Pulse Ox Last 24 Hr 96.0 F-99.4 F 59-74 14-21 98-154/56-75 94-100 Result/EKG - Labs CBC & BMP: 06/27/17 09:20 06/27/17 01:14 Labs: Laboratory Results - last 24 hr 06/26/17 06/26/17 06/26/17 11:05 16:34 17:55 WBC RBC Hgb 8.3 L Hct 25.7 L MCV MCH MCHC RDW Plt Count MPV Neut % (Auto) Lymph % (Auto) [place] % (Auto) Eos % (Auto) Baso % (Auto) Neut # (Auto) Lymph # (Auto) [place] # (Auto) Eos # (Auto) Baso # (Auto) Immature Gran % Nucleated RBC % Immature Gran # Nucleated RBCs # Immature Plt Fraction Hemoglobin A1 97.5 Hemoglobin A2 2.5 Hgb ELP Interp See comment Sodium Potassium Chloride Carbon Dioxide Anion Gap BUN Creatinine GFR Calculation BUN/Creatinine Ratio Glucose POC Glucose 137 H Calculated Osmolality Calcium Magnesium Blood Type Antibody Screen Crossmatch Blood Bank Comment 06/26/17 06/27/17 06/27/17 20:33 01:13 01:14 WBC 6.0 RBC 2.74 L Hgb 7.2 L Hct 22.3 L MCV 81.4 L MCH 26 L MCHC 32.3 RDW 16.7 Plt Count 285 MPV 12.2 H Neut % (Auto) 56.8 Lymph % (Auto) 25.6 [place] % (Auto) 10.8 Eos % (Auto) 6.3 Baso % (Auto) 0.2 Neut # (Auto) 3.4 Lymph # (Auto) 1.5 [place] # (Auto) 0.7 Eos # (Auto) 0.4 Baso # (Auto) 0.0 Immature Gran % 0.3 Nucleated RBC % 0.0 Immature Gran # 0.02 Nucleated RBCs # 0.00 Immature Plt Fraction 0.0 Hemoglobin A1 Hemoglobin A2 Hgb ELP Interp Sodium 143 Potassium 4.4 Chloride 108 H Carbon Dioxide 26 Anion Gap 13.4 BUN 17 Creatinine 1.30 GFR Calculation 81 BUN/Creatinine Ratio 13.00 Glucose 120 H POC Glucose 119 H Calculated Osmolality 287.0 Calcium 8.9 Magnesium 1.6 L Blood Type Antibody Screen Crossmatch Blood Bank Comment 06/27/17 06/27/17 06/27/17 07:17 07:46 09:20 WBC RBC Hgb 7.4 L Hct 22.9 L MCV MCH MCHC RDW Plt Count MPV Neut % (Auto) Lymph % (Auto) [place] % (Auto) Eos % (Auto) Baso % (Auto) Neut # (Auto) Lymph # (Auto) [place] # (Auto) Eos # (Auto) Baso # (Auto) Immature Gran % Nucleated RBC % Immature Gran # Nucleated RBCs # Immature Plt Fraction Hemoglobin A1 Hemoglobin A2 Hgb ELP Interp Sodium Potassium Chloride Carbon Dioxide Anion Gap BUN Creatinine GFR Calculation BUN/Creatinine Ratio Glucose POC Glucose 119 H Calculated Osmolality Calcium Magnesium Blood Type Cancelled Antibody Screen Cancelled Crossmatch See Detail Blood Bank Comment Cancelled 06/27/17 Unknown WBC RBC Hgb Hct MCV MCH MCHC RDW Plt Count MPV Neut % (Auto) Lymph % (Auto) [place] % (Auto) Eos % (Auto) Baso % (Auto) Neut # (Auto) Lymph # (Auto) [place] # (Auto) Eos # (Auto) Baso # (Auto) Immature Gran % Nucleated RBC % Immature Gran # Nucleated RBCs # Immature Plt Fraction Hemoglobin A1 Hemoglobin A2 Hgb ELP Interp Sodium Potassium Chloride Carbon Dioxide Anion Gap BUN Creatinine GFR Calculation BUN/Creatinine Ratio Glucose POC Glucose Calculated Osmolality Calcium Magnesium Blood Type B POSITIVE Antibody Screen Crossmatch Blood Bank Comment
--- NOTE | 2017-06-27 14:33 | Cardiology Progress Note ---
Joel Gonzalez Vanessa RN, am scribing for, and in the presence of, Etta Blue DO 14 :33. Assessment and Plan - Time spent with patient Time spent with patient: Greater than 30 minutes (1) Ventricular tachycardia Status: Acute Assessment and plan: Documented episode of wide QRS regular tachycardia which initially demonstrated ventricular tachycardia without significant conversion pause. He has been evaluated by Dr. Craft. Status post endoscopy today for worsening anemia and pending improvement of hemoglobin, may be able to proceed with planned defibrillator implant tomorrow. May need to be discharged and reevaluated on outpatient basis with LifeVest at discharge. Current Visit: Yes (2) Syncope Status: Acute Assessment and plan: [place] to be most certainly related to dysrhythmia. Dr. Craft has evaluated and patient is candidate for AICD implant for preventative therapy. Current Visit: Yes (3) Microcytic hypochromic anemia Status: Chronic Assessment and plan: Requiring blood transfusion today. Will follow up post transfusion CBC and CBC in the morning. Current Visit: Yes (4) CVA (cerebral vascular accident) Status: Acute Assessment and plan: Appears stable at this time. Current Visit: Yes (5) COPD (chronic obstructive pulmonary disease) Status: Chronic Assessment and plan: Stable. Current Visit: Yes (6) Coronary artery disease Status: Chronic Assessment and plan: Mild to moderate coronary artery disease with no good options for revascularization. He does have recent history of RCA stent. Preserved EF 70% . Continue statin, ASA, Plavix, and beta-ignacio Current Visit: Yes (7) Diabetes mellitus Status: Chronic Assessment and plan: Continue current plan of care. Current Visit: Yes (8) Hyperlipidemia Status: Chronic Assessment and plan: Continue statin. Current Visit: Yes (9) Hypertension Status: Chronic Assessment and plan: Overall, well controlled. Continue to monitor and adjust antihypertensive regimen as indicated. Current Visit: Yes (10) Lumbar disc disease Status: Chronic Assessment and plan: Continue current plan of care. Current Visit: Yes (11) Tobacco use Status: Chronic Assessment and plan: 3-10 minutes spent with patient discussing the importance and merits of complete tobacco cessation. Reiterated importance of abstaining from use of marijuana also. Current Visit: Yes Cardiology - PN: Subj Interval history: CLASSIFIER TENDER: DR. DUMONT SUMMARY: Mr. Nathan, 72-year-old BM, with past medical history of coronary artery disease , diabetes, hypertension, and hyperlipidemia. He also has mild chronic renal insufficiency, COPD, glaucoma, and chronic low back pain (implanted stimulator) . He is status post PTCA and stent of proximal RCA. He has also had recent hospitalization at [facility] 1 month ago for stroke. He does have some residual left upper extremity weakness. Mr. Nathan was transferred from [facility] [place] on 06/18 for further evaluation of syncope and was subsequently found to have episodes of ventricular tachycardia. [address] [facility], he underwent repeat left heart catheterization by Dr. Dumont and was found to have moderate to severe obstructive CAD but no options for further revascularization. No documented LVOT gradient noted. He was transferred in referral to Dr. Craft for EP evaluation and AICD implant as he is at significantly high risk for sudden cardiac . June: Anemia present at admission was noted to be worsened today with H&H down to 7.2/ 22.3. AICD implant procedure canceled due to risk of V. fib initiation in the face of anemia transfusion was ordered and gastroenterology was consulted. Dr. Brown was able to evaluate patient early this morning and proceed with urgent diagnostic EGD. He has been on dual antiplatelet therapy. He had a cardiac stent many years ago but has a peripheral vascular intervention with presumed stent in the last 6 months in the left lower extremity by Dr. Dexter Barahona. Although dual antiplatelet therapy would be needed a much lesser time would be required. This probably can be stopped if needed. Of course longer therapy would be better but if problems arise it would probably be acceptable to stop his clopidogrel at this point if he has significant bleeding. 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 He could be considered for attempted embolization if active bleeding develops. He is evaluated this afternoon post EGD, and he is awake and alert in bed. Denies discomfort or shortness of breath. is present with him at bedside. BP 150/60. Sinus rhythm per telemetry monitoring with heart rate in 60s, no ectopy or sustained dysrhythmia. Hypomagnesemia, 1.6 this morning, and was repleted with IV mag sulfate per PRN protocol. Exam (Progress Note) - Constitutional Vitals: Period Temp Pulse Resp BP Sys/Barajas Pulse Ox Last 24 Hr 96.0 F-99.4 F 59-74 14-21 98-154/56-75 94-100 Exam: General appearance: No acute distress. Overweight. Head exam: Present: normal inspection, normocephalic, atraumatic. Absent: hematoma, laceration Eye exam: Present: EOMI. Absent: conjunctival injection, nystagmus, periorbital swelling, scleral icterus, laceration to eyelids Pupils: Present: PERRL. Absent: constricted, dilated, fixed, irregular, unequal ENT exam: Present: normal exam, normal external ear exam Neck exam: Present: normal inspection. Absent: lymphadenopathy, meningismus, tenderness, thyromegaly, carotid bruit Respiratory exam: Present: clear to auscultation bilaterally. Absent: accessory muscle use, chest wall tenderness, rales, rhonchi, wheezing. Cardiovascular exam: Present: regular rate and rhythm. Absent: gallop, JVD, rubs, murmur. No tachycardia, bradycardia, irregular rhythm GI/Abdominal exam: Present: normal bowel sounds, soft. Absent: distended, firm , guarding, hernia, mass, tenderness, rebound. Extremities exam: Present: normal inspection, normal capillary refill. Upper extremity pulses 2+. Lower extremity pulses 2+. Right femoral triple-lumen central line in place with dressing dry and intact. Absent: calf tenderness, edema Musculoskeletal: Present: No Fluid Collection, No Pain, Normal Range of Motion Back exam: Present: normal inspection. Absent: muscle spasm, vertebral tenderness Neurological exam: Present: alert, oriented X3, grossly intact without resting or essential tremor Psychiatric exam: Present: normal affect, normal mood. Patient does not appear anxious or depressed. Skin exam: Present: normal color, warm, dry, intact. Absent: cyanosis, diaphoretic, rash, urticaria The patient is receiving a blood transfusion when we examined. Result/EKG - Labs CBC & BMP: 06/27/17 09:20 06/27/17 01:14 Lab Results: I have reviewed the past 24 hour labs Labs: Laboratory Results - last 24 hr 06/26/17 06/26/17 06/26/17 11:05 16:34 17:55 WBC RBC Hgb 8.3 L Hct 25.7 L MCV MCH MCHC RDW Plt Count MPV Neut % (Auto) Lymph % (Auto) [place] % (Auto) Eos % (Auto) Baso % (Auto) Neut # (Auto) Lymph # (Auto) [place] # (Auto) Eos # (Auto) Baso # (Auto) Immature Gran % Nucleated RBC % Immature Gran # Nucleated RBCs # Immature Plt Fraction Hemoglobin A1 97.5 Hemoglobin A2 2.5 Hgb ELP Interp See comment Sodium Potassium Chloride Carbon Dioxide Anion Gap BUN Creatinine GFR Calculation BUN/Creatinine Ratio Glucose POC Glucose 137 H Calculated Osmolality Calcium Magnesium Blood Type Antibody Screen Crossmatch Blood Bank Comment 06/26/17 06/27/17 06/27/17 20:33 01:13 01:14 WBC 6.0 RBC 2.74 L Hgb 7.2 L Hct 22.3 L MCV 81.4 L MCH 26 L MCHC 32.3 RDW 16.7 Plt Count 285 MPV 12.2 H Neut % (Auto) 56.8 Lymph % (Auto) 25.6 [place] % (Auto) 10.8 Eos % (Auto) 6.3 Baso % (Auto) 0.2 Neut # (Auto) 3.4 Lymph # (Auto) 1.5 [place] # (Auto) 0.7 Eos # (Auto) 0.4 Baso # (Auto) 0.0 Immature Gran % 0.3 Nucleated RBC % 0.0 Immature Gran # 0.02 Nucleated RBCs # 0.00 Immature Plt Fraction 0.0 Hemoglobin A1 Hemoglobin A2 Hgb ELP Interp Sodium 143 Potassium 4.4 Chloride 108 H Carbon Dioxide 26 Anion Gap 13.4 BUN 17 Creatinine 1.30 GFR Calculation 81 BUN/Creatinine Ratio 13.00 Glucose 120 H POC Glucose 119 H Calculated Osmolality 287.0 Calcium 8.9 Magnesium 1.6 L Blood Type Antibody Screen Crossmatch Blood Bank Comment 06/27/17 06/27/17 06/27/17 07:17 07:46 09:20 WBC RBC Hgb 7.4 L Hct 22.9 L MCV MCH MCHC RDW Plt Count MPV Neut % (Auto) Lymph % (Auto) [place] % (Auto) Eos % (Auto) Baso % (Auto) Neut # (Auto) Lymph # (Auto) [place] # (Auto) Eos # (Auto) Baso # (Auto) Immature Gran % Nucleated RBC % Immature Gran # Nucleated RBCs # Immature Plt Fraction Hemoglobin A1 Hemoglobin A2 Hgb ELP Interp Sodium Potassium Chloride Carbon Dioxide Anion Gap BUN Creatinine GFR Calculation BUN/Creatinine Ratio Glucose POC Glucose 119 H Calculated Osmolality Calcium Magnesium Blood Type Cancelled Antibody Screen Cancelled Crossmatch See Detail Blood Bank Comment Cancelled 06/27/17 Unknown WBC RBC Hgb Hct MCV MCH MCHC RDW Plt Count MPV Neut % (Auto) Lymph % (Auto) [place] % (Auto) Eos % (Auto) Baso % (Auto) Neut # (Auto) Lymph # (Auto) [place] # (Auto) Eos # (Auto) Baso # (Auto) Immature Gran % Nucleated RBC % Immature Gran # Nucleated RBCs # Immature Plt Fraction Hemoglobin A1 Hemoglobin A2 Hgb ELP Interp Sodium Potassium Chloride Carbon Dioxide Anion Gap BUN Creatinine GFR Calculation BUN/Creatinine Ratio Glucose POC Glucose Calculated Osmolality Calcium Magnesium Blood Type B POSITIVE Antibody Screen Crossmatch Blood Bank Comment - EKG EKG results: interpreted by me, no acute changes EKG shows: sinus rhythm Su Gonzalez Shea, DO, personally performed the services described in this documentation, ascribed by Nia Maldonado RN in my presence, and it is both accurate and complete 433 .
[2017-06-27 20:35] LABS: Hematocrit 28.5 VOL% (42.0-52.0); Hemoglobin 9.3 GM/DL (14.0-18.0)
[2017-06-27] MEDS: ZALEPLON 5 MG CAPSULE PO PRN (21:49)
[2017-06-28 05:07] LABS: Basophils % 0.1 % (0.0-0.8); Eosinophils # 0.5 10*3/uL (0.0-0.87); Eosinophils % 6.7 % (0.00-10.9); Hematocrit 29.9 VOL% (42.0-52.0); Hemoglobin 9.9 GM/DL (14.0-18.0); Immature Granulocytes % 0.3 %; Immature Granulocytes Absolute 0.02 #; Lymphocytes # 1.8 10*3/uL (1.4-4.0); Lymphocytes % 25.7 % (21.2-54.2); Mean Corpuscular HGB Conc 33.1 GM/DL (32-36); Mean Corpuscular Hemoglobin 28 PG (27-34); Mean Corpuscular Volume 83.3 FL (87-102); Mean Platelet Volume 12.5 FL (9.6-12.0); Monocytes # 0.7 10*3/uL (0.11-0.8); Monocytes % 10.4 % (1.7-12.7); Neutrophils # 3.9 10*3/uL (1.4-7.4); Neutrophils % 56.8 % (38.7-73.9); Platelet Count 249 T/CUMM (130-400); Red Blood Count 3.59 MC/CUMM (3.8-5.5); Red Cell Distribution Width 16.3 % (9.3-17.3); White Blood Count 6.8 T/CUMM (4-12)
[2017-06-28 05:37] LABS: Calcium 9.2 MG/DL (8.5-10.1); Osmolality,Calculated 280.3 MOS/KG (273-304); Potassium 4.5 MMOL/L (3.5-5.1)
[2017-06-28] MEDS: ALBUTEROL 2.5 MG/3 ML NEB RESP TX SCH ×2 (07:26→20:32)
--- NOTE | 2017-06-28 07:50 | Electrophysiology Progress Not ---
Assessment and Plan (1) CVA (cerebral vascular accident) Status: Acute Assessment and plan: 72-year-old black male, recurrent syncope, CAD, preserved ejection fraction, ventricular tachycardia. Type 2 diabetes mellitus, glaucoma, back pain with implanted stimulator, suspected seizure disorder, recent CVA. -I recommend to complete GI workup, rule out malignancy as cause of severe anemia, markedly elevated ESR, before proceeding with ICD implant. -Please DC femoral TLC to decrease infectious risk, as soon as feasible -Continue metoprolol. No recent recurrence of the ventricular tachycardia, I would hold off adding an antiarrhythmic at this time. Amiodarone would be an option -If GI workup takes some time, he will need a LifeVest, before discharge. I can see him back in clinic in a week or so, to plan for the defibrillator implant, for secondary prevention. Current Visit: Yes (2) Ventricular tachycardia Status: Acute Current Visit: Yes (3) Syncope Status: Acute Current Visit: Yes (4) Coronary artery disease Status: Chronic Current Visit: Yes (5) Hypertension Status: Chronic Current Visit: Yes (6) Diabetes mellitus Status: Chronic Current Visit: Yes (7) Hyperlipidemia Status: Chronic Current Visit: Yes Electrophysiology Subjective Interval history: Hematocrit improved to 29 after transfusion. EGD confirmed AVMs in the duodenum , as suspected bleeding source. No ventricular tachycardia on telemetry. Exam - Constitutional Vitals: Period Temp Pulse Resp BP Sys/[place]ajas Pulse Ox Last 24 Hr 96.0 F-99.4 F 59-68 14-21 98-154/56-75 94-100 General appearance: normal weight, no acute distress - Head Head exam: Present: normal inspection. Absent: contusion - Eye Eye exam: Absent: conjunctival injection, scleral icterus Pupils: Absent: dilated - ENT ENT exam: Present: normal external ear exam - Neck Neck exam: Present: normal inspection - Respiratory Respiratory exam: Present: clear to auscultation bilaterally - Cardiovascular Cardiovascular exam: Present: regular rate and rhythm, systolic murmur. Absent : JVD - GI/Abdominal GI/Abdominal exam: Present: normal bowel sounds. Absent: distended - Extremities Exam Extremities exam: Present: normal inspection, normal capillary refill, other ( Right femoral TLC in place). Absent: edema - Back Exam Back exam: Present: normal inspection - Neurological Exam Neurological exam: Present: alert, oriented X3 - Psychiatric Psychiatric exam: Present: normal affect, normal mood - Skin Skin exam: Present: normal color, warm. Absent: cyanosis Results - Labs CBC & BMP: 06/28/17 03:46 06/28/17 03:46 Lab Results: I have reviewed the past 24 hour labs
[2017-06-28 08:04] LABS: Hematocrit 30.5 VOL% (42.0-52.0)
[2017-06-28] MEDS: BRIMONIDINE 0.2% OPH SOLN 5 ML BOTTLE BOTH EYES SCH ×2 (09:05→21:43)
[2017-06-28] MEDS: ROSUVASTATIN 10 MG TABLET PO SCH (09:05)
[2017-06-28] MEDS: FERROUS SULFATE 325 MG TABLET PO SCH ×3 (09:05→21:43)
[2017-06-28] MEDS: NICOTINE 14 MG/24 HR PATCH TRANSDERM SCH (09:05)
[2017-06-28] MEDS: cloNIDine 0.1 MG TABLET PO SCH ×2 (09:05→21:43)
[2017-06-28] MEDS: PROMETHAZINE 25 MG TABLET PO SCH ×4 (09:06→18:02)
[2017-06-28] MEDS: ASPIRIN CHEW 81 MG TABLET PO SCH (09:06)
[2017-06-28] MEDS: hydroCHLOROthiazide 25 MG TABLET PO SCH (09:06)
[2017-06-28] MEDS: MULTIVITAMIN (BEROCCA) TABLET PO SCH (09:06)
[2017-06-28] MEDS: PANTOPRAZOLE 40 MG TABLET PO SCH (09:06)
[2017-06-28] MEDS: amLODIPine 10 MG TABLET PO SCH (09:06)
[2017-06-28] MEDS: MAGNESIUM OXIDE 400 MG TABLET PO SCH ×2 (09:07→21:43)
[2017-06-28] MEDS: FAMOTIDINE 20 MG TABLET PO SCH (09:07)
[2017-06-28] MEDS: METOPROLOL TARTRATE 50 MG TABLET PO SCH ×2 (09:07→22:17)
[2017-06-28] MEDS: INSULIN LISPRO 100 UNIT/ML SUBCUT SCH ×4 (09:14→22:16)
[2017-06-28] MEDS: CLOPIDOGREL 75 MG TABLET PO SCH (09:15)
[2017-06-28 09:45] LABS: Vitamin B12 530 PG/ML (211-911)
--- NOTE | 2017-06-28 09:45 | Gastrointestinal Progress Note ---
<Syl Wilks - Last Filed: 06/28/17 09:43> Assessment and Plan (1) Anemia Status: Acute Assessment and plan: 06/28-H&H holding at 09/02. No overt bleeding reported. Prior colonoscopy at [facility] noted as below. Continue to monitor this time. Plan an addendum to follow Dr. Brown. 06/27-Hx of anemia with blood transfusions in past with findings of HH 05/25 w/o overt bleeding. Reports of melena, on iron therapy as well as Plavix. Will obtain endoscopy records from [facility]. Plan for diagnostic EGD today to further evaluate. Plan and addendum to follow by Dr Brown. Current Visit: Yes Gastroenterology - PN: Subj Interval history: CC: Anemia Patient is seen, awake and alert lying in bed. States he had an uneventful night. Denies any abdominal pain, nausea or vomiting. EGD on yesterday noted showed AVMs of the small bowel. He is not having any known overt bleeding at this time. Reviewed records from [facility], and noted the patient did have a colonoscopy done in September of last year with suboptimal prep noted, with pre- diverticular findings as well as polyps 2 removed with negative pathology. Patient H&H: 09/02 and has been transfused 2 units packed red blood cells since admission. He is noted to be held n.p.o. however according to records noted today there are no plans at this time to proceed with ICD placement in his GI workup has been completed. Abdomen is soft, nontender. ROS: Denies shortness breath or chest pain Exam (Progress Note) - Constitutional Vitals: Period Temp Pulse Resp BP Sys/[place]ajas Pulse Ox Last 24 Hr 96.0 F-99.5 F 59-68 14-21 98-154/56-75 94-100 General appearance: normal weight, no acute distress - Head Head exam: Present: normal inspection, normocephalic - Eye Eye exam: Present: other (Lids and conjunctivae are unremarkable). Absent: scleral icterus - ENT ENT exam: Present: normal exam, normal oropharynx - Neck Neck exam: Present: normal inspection - Respiratory Respiratory exam: Present: clear to auscultation bilaterally. Absent: rales, rhonchi, wheezes - Cardiovascular Cardiovascular exam: Present: regular rate and rhythm. Absent: diastolic murmur , JVD, systolic murmur - GI/Abdominal GI/Abdominal exam: Present: normal bowel sounds, soft. Absent: ascites, distended, mass, organomegaly, tenderness - Extremities Exam Extremities exam: Present: normal inspection, full ROM - Back Exam Back exam: Present: normal inspection - Neurological Exam Neurological exam: Present: alert, oriented X3 - Psychiatric Psychiatric exam: Present: normal affect, normal mood - Skin Skin exam: Present: normal color, warm, dry Results - Labs CBC & BMP: 06/28/17 07:47 06/28/17 03:46 Lab Results: I have reviewed the past 24 hour labs Specialty Discharge - Follow Up or Referrals Follow up with: Gurjit Craft MD [Physician] - 1 Week (ECG, CBC, Chem 7) <Willem Brown - Last Filed: 06/28/17 14:40> Exam (Progress Note) - Constitutional Vitals: Period Temp Pulse Resp BP Sys/Barajas Pulse Ox Last 24 Hr 97.0 F-99.5 F 58-68 16-20 124-146/60-71 95-100 Results - Labs CBC & BMP: 06/28/17 07:47 06/28/17 03:46
[2017-06-28 09:46] LABS: Folate 4.5 NG/ML (5.4-24.0)
--- NOTE | 2017-06-28 12:33 | Discharge Summary ---
Hospital Course - Hospital Course Hospital Course: Mr. Nathan is a 72-year-old gentleman who was taken transferred from [facility] [place] for the purpose of receiving an ICD for secondary prophylaxis after nonsustained ventricular tachycardia at outside facility. After arrival here he was found to be significantly anemic and had a dropping hemoglobin and hematocrit. He also was found to have a markedly elevated erythrocyte sedimentation rate in the experienced weight loss.. The patient underwent EGD at our facility that showed angiodysplasia but no other significant abnormality. This was in the small bowel. We obtained 31 pages of records from [facility] [place] I read those there is most recently and most importantly been an EGD performed that facility which showed a duodenal ulcer and biopsy report was reviewed. Patient also had a colonoscopy performed by Dr. Sha Villanueva that showed some transverse colon polyps that were benign a rectal skin tag and hemorrhoid remnant. There is no mass. Because of the patient's overall clinical status it was felt best by Dr. Craft that the patient had some workup prior to proceeding with ICD. There were concerns of malignancy given weight loss erythrocyte sedimentation rate and anemia. The patient had a LifeVest placed and will follow with Dr. Craft in 1 week with Chem- 7, CBC and ECG. - Time spent with patient Time with patient DS: Greater than 30 minutes Diagnosis - Discharge Diagnosis (1) Ventricular tachycardia Status: Acute (2) Syncope Status: Acute (3) Microcytic hypochromic anemia Status: Chronic (4) CVA (cerebral vascular accident) Status: Acute (5) COPD (chronic obstructive pulmonary disease) Status: Chronic (6) Coronary artery disease Status: Chronic (7) Diabetes mellitus Status: Chronic (8) Hyperlipidemia Status: Chronic (9) Hypertension Status: Chronic (10) Lumbar disc disease Status: Chronic (11) Tobacco use Status: Chronic (12) Polyposis coli Status: Chronic (13) Duodenal ulcer Status: Chronic Specialty Discharge - Follow Up or Referrals Follow up with: Gurjit Craft MD [Physician] - 1 Week (ECG, CBC, Chem 7) Discharge Plan - Discharge Data Disposition: Disch To Home/Self Care Condition at Discharge: Stable Discharge Diet: advance to your usual diet Activity: resume usual activities as tolerated Hygiene: no restrictions Weight Bearing at Discharge: full weight bearing Driving: not until seen by doctor Contact your physician if you experience:: fever over 101, Difficulty voiding, Redness or swelling, Nausea/Vomiting, Shortness of breath, Bleeding, pain uncontrolled by pain medications - Discharge Medications Continue Ondansetron Tab [Zofran Tab] 4 mg PO Q6H #20 tablet Tramadol HCl [Tramadol Tab] 50 mg PO Q6HR PRN PRN Reason: Pain sitaGLIPtin [Januvia] 50 mg PO DAILY Ranitidine Tab [Zantac Tab] 300 mg PO DAILY Promethazine Tab [Phenergan Tab] 25 mg PO Q6HR Pregabalin [Lyrica] 75 mg PO BID Metoprolol Tartrate 50 mg PO BID Losartan [Cozaar] 100 mg PO DAILY Latanoprost [Latanoprost 0.005 % Oph Soln] 0.005 drop BEDTIME hydroCHLOROthiazide [Hydrochlorothiazide] 25 mg PO DAILY Ferrous Sulfate [Ferrous Sulfate Cap] 325 mg PO DAILY Docusate Sodium Cap [Colace Cap] 100 mg PO BID Clopidogrel [Plavix] 75 mg PO TID Budesonide/Formoterol 160-4.5 [Symbicort 160-4.5] 2 puff INH BID Brimonidine Tartrate [Brimonidine 0.2% Oph Soln] 1 drop BOTH EYES BID Aspirin 81 mg PO DAILY amLODIPine [Norvasc] 10 mg PO DAILY Latanoprost 0.005% Oph Soln [Xalatan 0.005% Oph Soln] 0.005 % BOTH EYES DAILY Rosuvastatin [Crestor] 10 mg PO DAILY Polyethylene Glycol 3350 17 gm PO DAILY PRN PRN Reason: Constipation cloNIDine HCl [Clonidine HCl] 0.1 mg PO BID Albuterol Sulfate [Proair HFA] 2 puff INH BID Discontinued amLODIPine [Norvasc] 10 mg PO DAILY - Follow Up or Referral Follow Up: Gurjit Craft MD [Physician] - 1 Week (ECG, CBC, Chem 7) - Forms/Instructions Exam - Constitutional Vitals: Period Temp Pulse Resp BP Sys/[place] Pulse Ox Last 24 Hr 97.0 F-99.5 F 60-68 16-20 124-154/60-71 95-100 General appearance: normal weight - Head Head exam: Present: normal inspection - Eye Eye exam: Present: EOMI Pupils: Present: HAILE - ENT ENT exam: Present: normal exam - Neck Neck exam: Present: normal inspection - Respiratory Respiratory exam: Present: clear to auscultation bilaterally - Cardiovascular Cardiovascular exam: Present: regular rate and rhythm - GI/Abdominal GI/Abdominal exam: Present: normal bowel sounds, soft - Extremities Exam Extremities exam: Present: normal inspection, full ROM - Back Exam Back exam: Present: normal inspection - Neurological Exam Neurological exam: Present: alert, oriented X3 - Psychiatric Psychiatric exam: Present: normal affect, normal mood - Skin Skin exam: Present: normal color, warm Discharge Results Procedures and tests throughout hospitalization: Pending Orders 06/26/17 10:13 Occult Blood, Stool Routine 06/28/17 16:41 H&H [Hemoglobin and Hematocrit] Q8H Labs on day of discharge: Labs from last 24 hours 06/28/17 06/28/17 06/28/17 12:04 08:14 07:47 WBC RBC Hgb 10.0 L Hct 30.5 L MCV MCH MCHC RDW Plt Count MPV Neut % (Auto) Lymph % (Auto) [place] % (Auto) Eos % (Auto) Baso % (Auto) Neut # (Auto) Lymph # (Auto) [place] # (Auto) Eos # (Auto) Baso # (Auto) Immature Gran % Nucleated RBC % Immature Gran # Nucleated RBCs # Anemia Panel Interp Immature Plt Fraction Sodium Potassium Chloride Carbon Dioxide Anion Gap BUN Creatinine GFR Calculation BUN/Creatinine Ratio Glucose POC Glucose 108 H 106 Calculated Osmolality Calcium Magnesium Transferrin Vitamin B12 Folate Blood Type Antibody Screen Crossmatch Blood Bank Comment 06/28/17 06/28/17 06/27/17 03:46 03:46 20:30 WBC 6.8 RBC 3.59 L D Hgb 9.9 L 9.3 L D Hct 29.9 L 28.5 L MCV 83.3 L MCH 28 MCHC 33.1 RDW 16.3 Plt Count 249 MPV 12.5 H Neut % (Auto) 56.8 Lymph % (Auto) 25.7 [place] % (Auto) 10.4 Eos % (Auto) 6.7 Baso % (Auto) 0.1 Neut # (Auto) 3.9 Lymph # (Auto) 1.8 [place] # (Auto) 0.7 Eos # (Auto) 0.5 Baso # (Auto) 0.0 Immature Gran % 0.3 Nucleated RBC % 0.0 Immature Gran # 0.02 Nucleated RBCs # 0.00 Anemia Panel Interp Immature Plt Fraction 0.0 Sodium 141 Potassium 4.5 Chloride 108 H Carbon Dioxide 26 Anion Gap 11.5 BUN 16 Creatinine 1.20 GFR Calculation 81 BUN/Creatinine Ratio 13.00 Glucose 88 POC Glucose Calculated Osmolality 280.3 Calcium 9.2 Magnesium 2.0 Transferrin Vitamin B12 Folate Blood Type Antibody Screen Crossmatch Blood Bank Comment 06/27/17 06/27/17 06/27/17 20:02 15:50 07:17 WBC RBC Hgb Hct MCV MCH MCHC RDW Plt Count MPV Neut % (Auto) Lymph % (Auto) [place] % (Auto) Eos % (Auto) Baso % (Auto) Neut # (Auto) Lymph # (Auto) [place] # (Auto) Eos # (Auto) Baso # (Auto) Immature Gran % Nucleated RBC % Immature Gran # Nucleated RBCs # Anemia Panel Interp Immature Plt Fraction Sodium Potassium Chloride Carbon Dioxide Anion Gap BUN Creatinine GFR Calculation BUN/Creatinine Ratio Glucose POC Glucose 127 H 114 H Calculated Osmolality Calcium Magnesium Transferrin Vitamin B12 Folate Blood Type Cancelled Antibody Screen Cancelled Crossmatch See Detail Blood Bank Comment Cancelled 06/26/17 06/26/17 06/26/17 11:05 11:05 11:05 WBC RBC Hgb Hct MCV MCH MCHC RDW Plt Count MPV Neut % (Auto) Lymph % (Auto) [place] % (Auto) Eos % (Auto) Baso % (Auto) Neut # (Auto) Lymph # (Auto) [place] # (Auto) Eos # (Auto) Baso # (Auto) Immature Gran % Nucleated RBC % Immature Gran # Nucleated RBCs # Anemia Panel Interp Immature Plt Fraction Sodium Potassium Chloride Carbon Dioxide Anion Gap BUN Creatinine GFR Calculation BUN/Creatinine Ratio Glucose POC Glucose Calculated Osmolality Calcium Magnesium Transferrin 168 L Vitamin B12 530 Folate 4.5 L Blood Type Antibody Screen Crossmatch Blood Bank Comment DS: Provider Date of admission: 06/26/17 13:28 Primary care physician: . No PCP Attending physician on admission: Gurjit Craft MD Consults: 06/26/17 08:42 Consult to Dietitian [CONS] Routine Reason for Dietitian: Other Consult Comment: PER ADMIT ASSESMENT. PT WITH WEIGHT LOSS 06/26/17 09:43 Consult to Physician [CONS] Routine Comment: VT, syncope, EP evaluation Consulting Provider: Gurjit Craft 06/26/17 10:42 Consult to Physician [CONS] Routine Comment: Consulting Provider: Consult to Specialist Group: Gastroenterology When should Consulting Provider be notified: Now 06/27/17 07:14 Consult to Physician [CONS] Routine Comment: microcytic hypochromic anemia Consulting Provider: Willem Brown Person Notified: Syl PERSONAL CHEF Date Notified: 06/26/17 Time Notified: 11:25 Consult Notification Comment: Syl was notified yesterday about pt for low H&H. 06/28/17 12:10 Consult to Case Mgmt/Social Srvs [CONS] Routine Reason for Case Mgmt/Social Srvs: Discharge Planning Consult Comment: pls evaluate/set up for LifeVest @ d/c. hope to d/c today. Discharging clinician: Etta Blue DO Expected date of discharge: 06/28/17
[2017-06-28 18:41] LABS: Hematocrit 31.4 VOL% (42.0-52.0); Hemoglobin 10.4 GM/DL (14.0-18.0)
[2017-06-29] MEDS: PROMETHAZINE 25 MG TABLET PO SCH ×2 (02:09→05:54)
[2017-06-29] MEDS: traMADol 50 MG TABLET PO PRN (03:17)
[2017-06-29 07:57] VITALS: BP 153/86
[2017-06-29] MEDS: ALBUTEROL 2.5 MG/3 ML NEB RESP TX SCH (08:09)
[2017-06-29] MEDS: INSULIN LISPRO 100 UNIT/ML SUBCUT SCH (11:18)
[2017-06-29] MEDS: BRIMONIDINE 0.2% OPH SOLN 5 ML BOTTLE BOTH EYES SCH (11:19)
[2017-06-29] MEDS: ROSUVASTATIN 10 MG TABLET PO SCH (11:19)
[2017-06-29] MEDS: ASPIRIN CHEW 81 MG TABLET PO SCH (11:19)
[2017-06-29] MEDS: cloNIDine 0.1 MG TABLET PO SCH (11:19)
[2017-06-29] MEDS: MULTIVITAMIN (BEROCCA) TABLET PO SCH (11:19)
[2017-06-29] MEDS: FERROUS SULFATE 325 MG TABLET PO SCH (11:22)
[2017-06-29] MEDS: hydroCHLOROthiazide 25 MG TABLET PO SCH (11:22)
[2017-06-29] MEDS: NICOTINE 14 MG/24 HR PATCH TRANSDERM SCH (11:23)
[2017-06-29] MEDS: MAGNESIUM OXIDE 400 MG TABLET PO SCH (11:23)
[2017-06-29] MEDS: FAMOTIDINE 20 MG TABLET PO SCH (11:23)
[2017-06-29] MEDS: amLODIPine 10 MG TABLET PO SCH (11:23)
[2017-06-29] MEDS: CLOPIDOGREL 75 MG TABLET PO SCH (11:23)
[2017-06-29] MEDS: PANTOPRAZOLE 40 MG TABLET PO SCH (11:23)
[2017-06-29] MEDS: METOPROLOL TARTRATE 50 MG TABLET PO SCH (11:23)
== END 2017-06-29 09:45 | disposition home or self-care (01) | DRG 309 ==
LOC: N.TELEN
PROVIDERS: ADMIT Internal Medicine Clinical Cardiac Electrophysiology; ATTEND Internal Medicine Clinical Cardiac Electrophysiology

== ENCOUNTER 2019-02-27 15:35 | Inpatient (IN) ==
[2019-02-27 16:13] LABS: Basophils % 0.5 % (0.0-0.8); Eosinophils # 0.1 10*3/uL (0.0-0.87); Eosinophils % 1.4 % (0.00-10.9); Hematocrit 42.1 VOL% (42.0-52.0); Immature Granulocytes % 0.2 %; Immature Granulocytes Absolute 0.01 #; Lymphocytes # 1.1 10*3/uL (1.4-4.0); Lymphocytes % 17.3 % (21.2-54.2); Mean Corpuscular HGB Conc 30.9 GM/DL (32-36); Mean Corpuscular Volume 76.1 FL (87-102); Mean Platelet Volume 10.1 FL (9.6-12.0); Monocytes % 5.3 % (1.7-12.7); Neutrophils % 75.3 % (38.7-73.9); Platelet Count 475 T/CUMM (130-400); Red Blood Count 5.53 MC/CUMM (3.8-5.5); Red Cell Distribution Width 18.9 % (9.3-17.3); White Blood Count 6.2 T/CUMM (4-12)
[2019-02-27 17:15] LABS: Albumin 4.5 G/DL (3.4-5.0); Bilirubin,Total 0.7 MG/DL (0.2-1.0); Calcium 10.8 MG/DL (8.5-10.1); Total Protein 9.1 G/DL (6.4-8.3)
[2019-02-27] MEDS ORDERED: MORPHINE 4 MG/1 ML VIAL IV STA (18:10)
[2019-02-27] MEDS ORDERED: ONDANSETRON 4 MG/2 ML VIAL ONE (18:13)
[2019-02-27] MEDS ORDERED: NITROGLYCERIN 2% OINT 1 INCH/GM PACK TOP ONE (18:13)
[2019-02-27] MEDS ORDERED: ONDANSETRON 4 MG/2 ML VIAL IV STA (18:33)
[2019-02-27] MEDS: NITROGLYCERIN SL 0.4 MG TABLET SL PRN ×3 (18:38→18:48)
[2019-02-27] MEDS ORDERED: DEXTROSE 50% 25 GM/50 ML SYRINGE IV PRN (21:32)
[2019-02-27] MEDS ORDERED: GLUCAGON 1 MG VIAL IM PRN (21:32)
[2019-02-27] MEDS ORDERED: ONDANSETRON ODT 4 MG TABLET PO PRN (22:19)
[2019-02-27] MEDS ORDERED: Tiotropium Br/Olodaterol Hcl [Stiolto Respimat Inhal Spray] INH PRN (22:19)
[2019-02-27] MEDS ORDERED: levETIRAcetam 500 MG TABLET ONE (22:32)
[2019-02-27] MEDS: levETIRAcetam 500 MG TABLET PO SCH (22:40)
[2019-02-27] MEDS: FAMOTIDINE 20 MG TABLET PO SCH (22:40)
[2019-02-27] MEDS: INSULIN LISPRO 100 UNIT/ML SUBCUT SCH (22:44)
[2019-02-27] MEDS: PREGABALIN 75 MG CAPSULE PO SCH (22:57)
[2019-02-27] MEDS: CILOSTAZOL 50 MG TABLET PO SCH (22:57)
[2019-02-27] MEDS: ROSUVASTATIN 10 MG TABLET PO SCH (22:57)
[2019-02-27] MEDS: BRIMONIDINE 0.2% OPH SOLN 5 ML BOTTLE BOTH EYES SCH (22:58)
[2019-02-28] MEDS: traMADol 50 MG TABLET PO PRN ×3 (03:20→20:22)
[2019-02-28 04:12] LABS: Basophils % 0.5 % (0.0-0.8); Eosinophils # 0.1 10*3/uL (0.0-0.87); Eosinophils % 1.7 % (0.00-10.9); Hematocrit 36.5 VOL% (42.0-52.0); Hemoglobin 11.2 GM/DL (14.0-18.0); Immature Granulocytes % 0.3 %; Immature Granulocytes Absolute 0.02 #; Lymphocytes # 1.9 10*3/uL (1.4-4.0); Lymphocytes % 30.8 % (21.2-54.2); Mean Corpuscular HGB Conc 30.7 GM/DL (32-36); Mean Corpuscular Volume 76.7 FL (87-102); Mean Platelet Volume 10.4 FL (9.6-12.0); Monocytes % 10.8 % (1.7-12.7); Neutrophils % 55.9 % (38.7-73.9); Platelet Count 362 T/CUMM (130-400); Red Blood Count 4.76 MC/CUMM (3.8-5.5); Red Cell Distribution Width 18.2 % (9.3-17.3)
[2019-02-28 04:33] LABS: Calcium 9.6 MG/DL (8.5-10.1); Osmolality,Calculated 277.5 MOS/KG (273-304)
[2019-02-28] MEDS: ALBUTEROL 2.5 MG/3 ML NEB RESP TX SCH ×2 (08:02→19:14)
[2019-02-28] MEDS: INSULIN LISPRO 100 UNIT/ML SUBCUT SCH ×4 (08:38→20:26)
[2019-02-28] MEDS: CLOPIDOGREL 75 MG TABLET PO SCH (08:40)
[2019-02-28] MEDS: amLODIPine 5 MG TABLET PO SCH (08:41)
[2019-02-28] MEDS: FERROUS SULFATE 325 MG TABLET PO SCH (08:41)
[2019-02-28] MEDS: PREGABALIN 75 MG CAPSULE PO SCH ×2 (08:41→20:22)
[2019-02-28] MEDS: BRIMONIDINE 0.2% OPH SOLN 5 ML BOTTLE BOTH EYES SCH ×2 (08:41→20:25)
[2019-02-28] MEDS: levETIRAcetam 500 MG TABLET PO SCH ×2 (08:41→20:22)
[2019-02-28] MEDS: CILOSTAZOL 50 MG TABLET PO SCH ×2 (08:48→20:21)
[2019-02-28] MEDS: LATANOPROST 0.005% OPH SOLN 2.5 ML BOTTLE BOTH EYES SCH ×2 (13:25→22:10)
[2019-02-28] MEDS: METOPROLOL TARTRATE 50 MG TABLET PO SCH ×2 (13:29→22:10)
[2019-02-28] MEDS: LOSARTAN 25 MG TABLET PO SCH (13:29)
[2019-02-28] MEDS ORDERED: ALBUTEROL 2.5 MG/3 ML NEB RESP TX PRN (16:37)
[2019-02-28] MEDS: FAMOTIDINE 20 MG TABLET PO SCH (20:22)
[2019-02-28] MEDS: ROSUVASTATIN 10 MG TABLET PO SCH (20:22)
[2019-03-01] MEDS: ALBUTEROL 2.5 MG/3 ML NEB RESP TX SCH ×2 (07:02→18:59)
[2019-03-01] MEDS: INSULIN LISPRO 100 UNIT/ML SUBCUT SCH ×4 (08:05→20:25)
[2019-03-01] MEDS: LATANOPROST 0.005% OPH SOLN 2.5 ML BOTTLE BOTH EYES SCH ×2 (08:17→20:30)
[2019-03-01] MEDS: CILOSTAZOL 50 MG TABLET PO SCH ×2 (08:18→20:24)
[2019-03-01] MEDS: FERROUS SULFATE 325 MG TABLET PO SCH (08:18)
[2019-03-01] MEDS: CLOPIDOGREL 75 MG TABLET PO SCH (08:18)
[2019-03-01] MEDS: LOSARTAN 25 MG TABLET PO SCH (08:18)
[2019-03-01] MEDS: METOPROLOL TARTRATE 50 MG TABLET PO SCH ×2 (08:18→20:24)
[2019-03-01] MEDS: PREGABALIN 75 MG CAPSULE PO SCH ×2 (08:18→20:29)
[2019-03-01] MEDS: levETIRAcetam 500 MG TABLET PO SCH ×2 (08:20→20:25)
[2019-03-01] MEDS: amLODIPine 5 MG TABLET PO SCH (08:20)
[2019-03-01] MEDS: BRIMONIDINE 0.2% OPH SOLN 5 ML BOTTLE BOTH EYES SCH ×2 (08:20→20:25)
[2019-03-01] MEDS ORDERED: MAGNESIUM SULF RIDER 2 GM in PREMIX 1 EACH IV PRN (10:20)
[2019-03-01] MEDS ORDERED: POTASSIUM CHLORIDE RIDER 20 MEQ in PREMIX 1 EACH IV PRN (10:20)
[2019-03-01] MEDS: SODIUM CHLORIDE 0.9% 1,000 ML IV SCH ×2 (11:40→20:23)
[2019-03-01] MEDS: ROSUVASTATIN 10 MG TABLET PO SCH (20:24)
[2019-03-01] MEDS: traMADol 50 MG TABLET PO PRN (20:24)
[2019-03-01] MEDS: FAMOTIDINE 20 MG TABLET PO SCH (20:24)
[2019-03-02] MEDS: SODIUM CHLORIDE 0.9% 1,000 ML IV SCH ×4 (04:23→23:58)
[2019-03-02 05:33] LABS: Basophils % 0.3 % (0.0-0.8); Eosinophils # 0.2 10*3/uL (0.0-0.87); Eosinophils % 3.7 % (0.00-10.9); Hematocrit 29.3 VOL% (42.0-52.0); Hemoglobin 8.7 GM/DL (14.0-18.0); Immature Granulocytes % 0.2 %; Immature Granulocytes Absolute 0.01 #; Lymphocytes % 32.7 % (21.2-54.2); Mean Corpuscular HGB Conc 29.7 GM/DL (32-36); Mean Corpuscular Volume 78.1 FL (87-102); Monocytes % 12.9 % (1.7-12.7); Neutrophils % 50.2 % (38.7-73.9); Platelet Count 285 T/CUMM (130-400); Red Blood Count 3.75 MC/CUMM (3.8-5.5); Red Cell Distribution Width 18.6 % (9.3-17.3)
[2019-03-02 05:56] LABS: INR 0.9; PT Patient Result 10.3 SECS
[2019-03-02 08:05] LABS: Calcium 8.9 MG/DL (8.5-10.1)
[2019-03-02] MEDS: INSULIN LISPRO 100 UNIT/ML SUBCUT SCH ×4 (08:37→20:33)
[2019-03-02] MEDS ORDERED: diphenhydrAMINE CAP 25 MG CAPSULE PO ONE (08:52)
[2019-03-02] MEDS ORDERED: DIAZEPAM 5 MG TABLET PO ONE (08:52)
[2019-03-02] MEDS ORDERED: MAGNESIUM SULF RIDER 2 GM in PREMIX 1 EACH IV PRN (08:52)
[2019-03-02] MEDS ORDERED: POTASSIUM CHLORIDE RIDER 10 MEQ in PREMIX 1 EACH IV PRN (08:52)
[2019-03-02] MEDS: BRIMONIDINE 0.2% OPH SOLN 5 ML BOTTLE BOTH EYES SCH ×2 (09:24→20:33)
[2019-03-02] MEDS: PREGABALIN 75 MG CAPSULE PO SCH ×2 (09:24→20:32)
[2019-03-02] MEDS: METOPROLOL TARTRATE 50 MG TABLET PO SCH ×2 (09:24→20:32)
[2019-03-02] MEDS: levETIRAcetam 500 MG TABLET PO SCH ×2 (09:24→20:32)
[2019-03-02] MEDS: LOSARTAN 25 MG TABLET PO SCH (09:24)
[2019-03-02] MEDS: FERROUS SULFATE 325 MG TABLET PO SCH (09:24)
[2019-03-02] MEDS: CILOSTAZOL 50 MG TABLET PO SCH ×2 (09:25→20:32)
[2019-03-02] MEDS: amLODIPine 5 MG TABLET PO SCH (09:25)
[2019-03-02] MEDS: CLOPIDOGREL 75 MG TABLET PO SCH (09:25)
[2019-03-02] MEDS: LATANOPROST 0.005% OPH SOLN 2.5 ML BOTTLE BOTH EYES SCH ×2 (09:29→20:34)
[2019-03-02] MEDS ORDERED: HYDROmorphone 2 MG/1 ML VIAL ONE (09:50)
[2019-03-02] MEDS ORDERED: MIDAZOLAM 2 MG/2 ML VIAL ONE (09:50)
[2019-03-02] MEDS ORDERED: LIDOCAINE 1% 20 ML VIAL ONE (09:50)
[2019-03-02] MEDS ORDERED: VERAPAMIL 5 MG/2 ML VIAL ONE (09:51)
[2019-03-02] MEDS ORDERED: ENOXAPARIN 30 MG/0.3 ML SYRINGE ONE ×2 (10:10→10:11)
[2019-03-02] MEDS ORDERED: LABETALOL 20 MG/4 ML SYRINGE IV ONE (10:24)
[2019-03-02] MEDS: ALBUTEROL 2.5 MG/3 ML NEB RESP TX SCH ×2 (10:25→19:25)
[2019-03-02] MEDS ORDERED: HYDROmorphone 2 MG/1 ML VIAL IV PRN (10:48)
[2019-03-02] MEDS ORDERED: ACETAMINOPHEN 325 MG TABLET PO PRN (10:48)
[2019-03-02] MEDS ORDERED: GLUCAGON 1 MG VIAL IM PRN (11:13)
[2019-03-02] MEDS ORDERED: DEXTROSE 50% 25 GM/50 ML VIAL IV PRN (11:13)
[2019-03-02] MEDS: traMADol 50 MG TABLET PO PRN ×2 (16:04→22:45)
[2019-03-02] MEDS: FAMOTIDINE 20 MG TABLET PO SCH (20:32)
[2019-03-02] MEDS: ROSUVASTATIN 10 MG TABLET PO SCH (20:32)
[2019-03-03] MEDS: SODIUM CHLORIDE 0.9% 1,000 ML IV SCH (04:19)
[2019-03-03 04:34] LABS: Basophils % 0.2 % (0.0-0.8); Eosinophils # 0.3 10*3/uL (0.0-0.87); Eosinophils % 5.3 % (0.00-10.9); Hematocrit 29.2 VOL% (42.0-52.0); Hemoglobin 8.9 GM/DL (14.0-18.0); Immature Granulocytes % 0.2 %; Immature Granulocytes Absolute 0.01 #; Lymphocytes # 1.7 10*3/uL (1.4-4.0); Lymphocytes % 35.4 % (21.2-54.2); Mean Corpuscular HGB Conc 30.5 GM/DL (32-36); Mean Corpuscular Volume 77.9 FL (87-102); Mean Platelet Volume 11.1 FL (9.6-12.0); Monocytes % 12.6 % (1.7-12.7); Neutrophils % 46.3 % (38.7-73.9); Platelet Count 257 T/CUMM (130-400); Red Blood Count 3.75 MC/CUMM (3.8-5.5); Red Cell Distribution Width 18.2 % (9.3-17.3); White Blood Count 4.9 T/CUMM (4-12)
[2019-03-03 05:01] LABS: Osmolality,Calculated 281.3 MOS/KG (273-304)
[2019-03-03 05:03] LABS: Blood Urea Nitrogen 18 MG/DL (7-18); Calcium 9.1 MG/DL (8.5-10.1); Glucose 89 MG/DL (74-106); Osmolality,Calculated 281.3 MOS/KG (273-304)
[2019-03-03 05:05] LABS: Troponin I 0.112 NG/ML (0.00-0.045)
[2019-03-03] MEDS: ALBUTEROL 2.5 MG/3 ML NEB RESP TX SCH (07:05)
[2019-03-03] MEDS: levETIRAcetam 500 MG TABLET PO SCH (08:28)
[2019-03-03] MEDS: CILOSTAZOL 50 MG TABLET PO SCH (08:28)
[2019-03-03] MEDS: PREGABALIN 75 MG CAPSULE PO SCH (08:28)
[2019-03-03] MEDS: METOPROLOL TARTRATE 50 MG TABLET PO SCH (08:28)
[2019-03-03] MEDS: INSULIN LISPRO 100 UNIT/ML SUBCUT SCH ×2 (08:29→11:42)
[2019-03-03] MEDS: FERROUS SULFATE 325 MG TABLET PO SCH (08:29)
[2019-03-03] MEDS: CLOPIDOGREL 75 MG TABLET PO SCH (08:29)
[2019-03-03] MEDS: LOSARTAN 25 MG TABLET PO SCH (08:29)
[2019-03-03] MEDS: amLODIPine 5 MG TABLET PO SCH (08:29)
[2019-03-03] MEDS: LATANOPROST 0.005% OPH SOLN 2.5 ML BOTTLE BOTH EYES SCH (08:30)
[2019-03-03] MEDS: BRIMONIDINE 0.2% OPH SOLN 5 ML BOTTLE BOTH EYES SCH (08:31)
[2019-03-03 16:08] VITALS: BP 130/67
== END 2019-03-03 16:33 | disposition home health service (06) | DRG 287 ==
LOC: N.ED 15:35 → N.EDINP 15:35 → SUATTDRO 21:09 → N.EDINP 02-28 07:45 → N.TELES 02-28 08:01
PROVIDERS: ADMIT Internal Medicine; ATTEND Internal Medicine
PROC: CLCCHCL (ICD-10-PCS; 2019-03-02 10:15)

== ENCOUNTER 2019-03-07 12:14 | Observation (INO) ==
[2019-03-07] MEDS ORDERED: ONDANSETRON 4 MG/2 ML VIAL IV STA (12:43)
[2019-03-07] MEDS ORDERED: LOPERAMIDE 2 MG CAPSULE PO STA (12:43)
[2019-03-07] MEDS ORDERED: ASPIRIN 325 MG TABLET PO STA (12:43)
[2019-03-07] MEDS ORDERED: SODIUM CHLORIDE 0.9% 500 ML IV STA (12:49)
[2019-03-07 13:16] LABS: Basophils % 0.2 % (0.0-0.8); Eosinophils # 0.1 10*3/uL (0.0-0.87); Hematocrit 42.1 VOL% (42.0-52.0); Hemoglobin 12.6 GM/DL (14.0-18.0); Immature Granulocytes % 0.2 %; Immature Granulocytes Absolute 0.02 #; Lymphocytes # 0.9 10*3/uL (1.4-4.0); Lymphocytes % 9.7 % (21.2-54.2); Mean Corpuscular HGB Conc 29.9 GM/DL (32-36); Mean Corpuscular Volume 78.8 FL (87-102); Mean Platelet Volume 10.8 FL (9.6-12.0); Monocytes % 4.7 % (1.7-12.7); Neutrophils % 84.2 % (38.7-73.9); Platelet Count 418 T/CUMM (130-400); Red Blood Count 5.34 MC/CUMM (3.8-5.5); Red Cell Distribution Width 19.1 % (9.3-17.3); White Blood Count 8.8 T/CUMM (4-12)
[2019-03-07 13:23] LABS: PT Patient Result 10.6 SECS; Partial Thromboplastin Time 32.4 SECS (0-40)
[2019-03-07 13:50] LABS: Alanine Aminotransferase 15 U/L (16-61); Albumin 4.4 G/DL (3.4-5.0); Alkaline Phosphatase 128 U/L (45-117); Aspartate Amino Transferase 12 U/L (0-37); Blood Urea Nitrogen 19 MG/DL (7-18); Calcium 10.6 MG/DL (8.5-10.1); Glucose 137 MG/DL (74-106); Osmolality,Calculated 276.8 MOS/KG (273-304); Total Protein 9.3 G/DL (6.4-8.3)
[2019-03-07 13:54] LABS: Troponin I 0.066 NG/ML (0.00-0.045)
[2019-03-07] MEDS ORDERED: ONDANSETRON 4 MG/2 ML VIAL IV PRN (15:15)
[2019-03-07] MEDS ORDERED: ACETAMINOPHEN 325 MG TABLET PO PRN (15:15)
[2019-03-07] MEDS ORDERED: NITROGLYCERIN SL 0.4 MG TABLET SL PRN (15:22)
[2019-03-07] MEDS ORDERED: traMADol 50 MG TABLET PO PRN (15:22)
[2019-03-07] MEDS ORDERED: ALBUTEROL 1.25 MG/3 ML NEB RESP TX PRN (15:27)
[2019-03-07] MEDS ORDERED: DEXTROSE 5% NACL 0.45% 1,000 ML IV SCH (15:30)
[2019-03-07] MEDS ORDERED: ENOXAPARIN 40 MG/0.4 ML SYRINGE SUBCUT SCH (15:30)
[2019-03-07 15:59] LABS: Apearance,Urine CLEAR (Clear); Bilirubin,Urine Negative (Negative); Blood, Urine Small mg/dL (Negative); Glucose,Urine (UA) Negative (Negative); Hyaline Casts,Urine 5 /LPF (0-3); Ketones,Urine 5 mg/dL (Negative); Mucus,Urine Occasional /LPF (Occasional); Nitrite,Urine Negative (Negative); Protein,Urine 100 MG/DL; RBC,Urine 1 /HPF (0-4); Sperm,Urine Occasional /HPF (Negative); Squamous Epithelial Cell,Urine Occasional /HPF (0-10); Urine Color Yellow (Yellow); Urine Specific Gravity 1.014 (1.001-1.035); Urine Urobilinogen < 2.0 EU/DL (0.2-1.0); WBC,Urine <1 /HPF (0-6)
[2019-03-07 16:05] LABS: Barbiturates Screen,Urine Negative (Negative); Benzodiazepines Screen,Urine Negative (Negative); Cannabinoid Screen,Urine Positive (Negative); Opiate Screen,Urine Negative (Negative); Phencyclidine Screen,Urine Negative (Negative)
[2019-03-07] MEDS ORDERED: NON-FORMULARY MEDICATION (Tiotropium Br/Olodaterol Hcl [Stiolto Respimat Inhal Spray] 1 PU INH PRN (16:05)
[2019-03-07] MEDS ORDERED: amLODIPine 5 MG TABLET PO ONE (16:40)
[2019-03-07] MEDS ORDERED: METOPROLOL TARTRATE 50 MG TABLET PO ONE (16:41)
[2019-03-07] MEDS: LACTOBACILLUS ACIDOPHILUS/BULGARICUS CAPLET PO SCH (16:59)
[2019-03-07] MEDS: NICOTINE 21 MG/24 HR PATCH TRANSDERM SCH (17:00)
[2019-03-07 17:57] LABS: Troponin I 0.066 NG/ML (0.00-0.045)
[2019-03-07] MEDS: ALBUTEROL/IPRATROPIUM 3 ML NEB RESP TX SCH (19:00)
[2019-03-07] MEDS ORDERED: IPRATROPIUM 500 MCG/2.5 ML NEB RESP TX SCH (19:00)
[2019-03-07] MEDS ORDERED: LATANOPROST 0.005% OPH SOLN 2.5 ML BOTTLE BOTH EYES SCH (21:00)
[2019-03-07] MEDS ORDERED: FAMOTIDINE 20 MG TABLET PO SCH (21:00)
[2019-03-07] MEDS ORDERED: ROSUVASTATIN 20 MG TABLET PO SCH (21:00)
[2019-03-07] MEDS: BRIMONIDINE 0.2% OPH SOLN 5 ML BOTTLE BOTH EYES SCH (21:46)
[2019-03-07] MEDS: PREGABALIN 75 MG CAPSULE PO SCH (21:53)
[2019-03-07] MEDS: PANTOPRAZOLE 40 MG TABLET PO SCH (21:53)
[2019-03-07] MEDS: levETIRAcetam 250 MG TABLET PO SCH (21:53)
[2019-03-07] MEDS: CILOSTAZOL 50 MG TABLET PO SCH (21:53)
[2019-03-07] MEDS: METOPROLOL TARTRATE 50 MG TABLET PO SCH (21:54)
[2019-03-07] MEDS: BUDESONIDE/FORMOTEROL 160-4.5 INHALER 6 GM INH SCH (21:59)
[2019-03-07 22:57] LABS: CKMB % 3.4 %
[2019-03-07 22:58] LABS: Troponin I 0.08 NG/ML (0.00-0.045)
[2019-03-08 06:10] LABS: Basophils % 0.3 % (0.0-0.8); Eosinophils # 0.2 10*3/uL (0.0-0.87); Eosinophils % 2.2 % (0.00-10.9); Hematocrit 34.7 VOL% (42.0-52.0); Hemoglobin 10.8 GM/DL (14.0-18.0); Immature Granulocytes % 0.3 %; Immature Granulocytes Absolute 0.02 #; Lymphocytes # 1.6 10*3/uL (1.4-4.0); Lymphocytes % 20.7 % (21.2-54.2); Mean Corpuscular HGB Conc 31.1 GM/DL (32-36); Mean Corpuscular Volume 76.6 FL (87-102); Mean Platelet Volume 11.7 FL (9.6-12.0); Monocytes % 10.5 % (1.7-12.7); Platelet Count 412 T/CUMM (130-400); Red Blood Count 4.53 MC/CUMM (3.8-5.5); Red Cell Distribution Width 18.6 % (9.3-17.3); White Blood Count 7.8 T/CUMM (4-12)
[2019-03-08 06:54] LABS: Calcium 9.2 MG/DL (8.5-10.1)
[2019-03-08 06:59] LABS: CKMB % 6.1 %; Troponin I 0.075 NG/ML (0.00-0.045)
[2019-03-08] MEDS: ALBUTEROL/IPRATROPIUM 3 ML NEB RESP TX SCH (07:15)
[2019-03-08] MEDS: PANTOPRAZOLE 40 MG TABLET PO SCH (08:53)
[2019-03-08] MEDS: BRIMONIDINE 0.2% OPH SOLN 5 ML BOTTLE BOTH EYES SCH (08:53)
[2019-03-08] MEDS: BUDESONIDE/FORMOTEROL 160-4.5 INHALER 6 GM INH SCH (08:53)
[2019-03-08] MEDS: METOPROLOL TARTRATE 50 MG TABLET PO SCH (08:53)
[2019-03-08] MEDS: CILOSTAZOL 50 MG TABLET PO SCH (08:53)
[2019-03-08] MEDS: levETIRAcetam 250 MG TABLET PO SCH (08:53)
[2019-03-08] MEDS: LACTOBACILLUS ACIDOPHILUS/BULGARICUS CAPLET PO SCH (08:54)
[2019-03-08] MEDS: PREGABALIN 75 MG CAPSULE PO SCH (08:54)
[2019-03-08] MEDS: NICOTINE 21 MG/24 HR PATCH TRANSDERM SCH (08:54)
[2019-03-08] MEDS ORDERED: CLOPIDOGREL 75 MG TABLET PO SCH (09:00)
[2019-03-08] MEDS ORDERED: FERROUS SULFATE 325 MG TABLET PO SCH (09:00)
[2019-03-08] MEDS ORDERED: LOSARTAN 25 MG TABLET PO SCH (09:00)
[2019-03-08] MEDS ORDERED: amLODIPine 5 MG TABLET PO SCH (09:00)
[2019-03-08] MEDS ORDERED: LOSARTAN 50 MG TABLET PO SCH (09:00)
[2019-03-08 11:45] VITALS: BP 128/70
== END 2019-03-08 13:17 | disposition home or self-care (01) ==
LOC: N.ED 12:14 → N.EDINP 12:14 → N.TELES 15:59
PROVIDERS: ADMIT Hospitalist; ATTEND Hospitalist